=== PATIENT | male | born 1955 | race Caucasian/White ===

== ENCOUNTER → 2017-03-29 | Outpatient (CLI) | payer BC, OTHER ==
[~2017-03-29] MED LIST: ACTOS PLUS; ATOR40TA70 PO; CANA300T PO; CETI10TA17; FLUO40CA PO; HYDR-3454 PO; LISI40TA PO; PARO20TA57 PO; PIOG30TA PO; SAXA1TBM3 PO; [UNRECOGNIZED DRUG - OTHER]; lisinopril
--- NOTE | 2017-03-29 10:15 | Diagnostic Imaging Report ---
PROCEDURE: MRI right joint upper extremity without contrast. TECHNIQUE: Multiplanar, multisequence non contrast-enhanced MRI of the right wrist was accomplished. INDICATION: Dorsal wrist pain for two months. COMPARISON: None available. FINDINGS: Bones and cartilage: Dorsal to the trapezium and hamate articulation, there is a 4 x 2 mm hypointense focus surrounded by synovial fluid and/or synovitis. This could represent a small cortical-based ossific fragment from fracture in this region. There is no bone marrow edema within the carpal bones of the wrist or the distal radius. Multifocal chondral loss throughout the radiocarpal joint is greatest in the dorsal aspect of the radius with underlying subcortical cystic change secondary to full-thickness chondromalacia overlying. No osseous erosions. There is no osteonecrosis of the lunate. Tendons: The extensor tendons are normal in position and there is no peritendinitis or tear. Flexor tendons within the carpal tunnel are normal. The flexor carpi radialis and flexor carpi ulnaris are also normal. The palmaris longus is normal where visualized. Ligaments: Assessment of the intrinsic ligaments of the wrist is mildly limited without intra-articular contrast. Allowing for this, the TFC articular disc appears intact. Its radial and ulnar struts remain intact as well. The radioulnar component of the TFCC is normal. Lunotriquetral ligament is grossly normal. The dorsal and palmar components of the scapholunate ligament are intact. Soft tissues: There are no soft tissue ganglia about the wrist. The median nerve is normal in morphology. No abnormal mass effect in Guyon's canal. IMPRESSION: 1. Tiny hypointense fragment dorsal to the triquetrum and hamate with surrounding synovitis may relate to a small cortical-based ossific fragment. Correlation with lateral radiographs of the wrist is advised. 2. Hala-gb-ejqxhxwi degenerative changes of the radiocarpal joint include a focus of full-thickness chondral loss and underlying cystic change in the distal radius. 3. No ligamentous or tendinous abnormality. Dictated by: Dictated on workstation # [id number]
== END ==
LOC: RAD 08:30
PROVIDERS: ATTEND Orthopaedic Surgery
DX: M19.031 Primary osteoarthritis, right wrist (principal)
CPT/HCPCS: 73221

== ENCOUNTER → 2017-05-12 | Outpatient (CLI) | payer BC ==
--- NOTE | 2017-05-12 12:29 | Diagnostic Imaging Report ---
PROCEDURE: CT abdomen and pelvis without contrast. TECHNIQUE: Multiple contiguous axial images were obtained through the abdomen and pelvis without the use of intravenous contrast. INDICATION: Hematuria and dysuria COMPARISON: None FINDINGS: The lung bases are clear. The liver appears unremarkable. The gallbladder appears normal. There is no biliary dilatation. The pancreas, spleen and adrenal glands appear unremarkable. The kidneys and ureters appear unremarkable. The bladder is incompletely distended which likely accounts for the thickening of the bladder wall. This can be seen however with cystitis. Correlate clinically. There are small fat-containing inguinal hernias bilaterally. There is diverticulosis without evidence of diverticulitis. No evidence of appendicitis or other acute focal inflammatory process. There is no free fluid free air or adenopathy. Abdominal aorta appears normal in caliber. The osseous structures appear unremarkable with the exception of mild degenerative change. IMPRESSION: 1. No acute abnormalities demonstrated. 2. Diverticulosis without evidence diverticulitis. 3. Mild thickening of the bladder wall is probably due to incomplete distention but can be seen with cystitis. Correlate clinically 4. Small fat-containing inguinal hernias bilaterally. Dictated by: Dictated on workstation # [id number]
== END ==
LOC: RAD 09:56
PROVIDERS: ATTEND Urology
DX: R31.9 Hematuria, unspecified (principal); R30.0 Dysuria; K40.90 Unilateral inguinal hernia, without obstruction or gangrene, not specified as recurrent; N32.89 Other specified disorders of bladder; K57.90 Diverticulosis of intestine, part unspecified, without perforation or abscess without bleeding
CPT/HCPCS: 74176

== ENCOUNTER 2017-11-15 05:37 | Outpatient (CLI) | payer BC ==
[~2017-11-15] VITALS: Ht 175.3 cm; Wt 108.9 kg
[2017-11-15] MEDS ORDERED: METF-399 PO (12:57)
[2017-11-15] MEDS ORDERED: SPIR25TA5 PO (12:57)
[2017-11-15] MEDS ORDERED: GLIM1TAB PO (12:57)
[2017-11-15] MEDS ORDERED: PARO20TA5 PO (12:57)
[2017-11-15] MEDS ORDERED: DICY10CA12 PO (12:57)
[2017-11-15] MEDS ORDERED: LISI40TA PO (12:57)
[2017-11-15] MEDS ORDERED: ASPI-586 PO (12:57)
[2017-11-15] MEDS ORDERED: ATOR40TA70 PO (12:57)
[2017-11-15] MEDS ORDERED: PIOG30TA71 PO (12:57)
== END 2017-11-15 12:59 | disposition home or self-care (01) ==
LOC: PREOP 05:37
PROVIDERS: ATTEND Surgery
DX: Z01.818 Encounter for other preprocedural examination (principal)

== ENCOUNTER 2017-11-20 08:40 | Day surgery (SDC) | payer BC ==
[~2017-11-20] VITALS: Ht 175.3 cm; Wt 108.9 kg
[~2017-11-20 08:40] MED LIST changes: +ASPI-586 PO; +DICY10CA12 PO; +GLIM1TAB PO; +METF-399 PO; +PARO20TA5 PO; +PIOG30TA71 PO; +SPIR25TA5 PO
--- OUTSIDE RECORDS SUMMARY | 2017-11-20 08:50 | XMS REPORT ---
Author Author TEJAS BRAN [facility] Address [address] [place] [id number] Care Team Providers Care Med Aide Name Role Phone TEJAS BRAN Unavailable PROBLEMS Unknown Problems ALLERGIES No Information SOCIAL HISTORY Never Assessed PLAN OF CARE VITAL SIGNS MEDICATIONS No Known Medications RESULTS No Results PROCEDURES Procedure Date Ordered Result Body Site ZOSTER (ZOSTAVAX) July 06, 2016 SINGLE IMMUNIZATION ADMIN July 06, 2016 IMMUNIZATIONS Vaccine Route Administration Date Status ZOSTER (ZOSTAVAX) SC Subcutaneous July 06, 2016 Administered MEDICAL (GENERAL) HISTORY Type Description Date Medical History diabetes Medical History seasonal allergies Medical History HTN
--- OUTSIDE RECORDS SUMMARY | 2017-11-20 08:51 | XMS REPORT | Continuity of Care Document ---
Author Author [facility] Organization [facility] Address Unknown Phone Unavailable Allergies Active Description Code Type Severity Reaction Onset Reported/Identified Relationship to Patient Clinical Status Yes TETANUS TOXOID TETANUS TOXOID Moderate nausea vomiting 11/02/2009 Yes No Known Drug Allergies [id number] Drug Allergy Unknown N/A 11/15/2017 Medications There is no data. Problems Date Dx Coded Attending Type Code Diagnosis Diagnosed By 05/19/2013 KODY BENDER DO S Ot 250.02 DIAB VINCENZO WO COMPL, TYPE II OR UNSPEC TY 05/19/2013 MYRA BENDER DOQUELINE S Ot 278.00 OBESITY, NOS 05/19/2013 GETACHEW BENDER DOLINE S Ot 401.9 HYPERTENSION NOS 05/30/2014 JAMIE WALTON, CONCHITA Dixon Ot 706.2 SEBACEOUS CYST 06/02/2015 LUIS SANFORD, KODY S Ot R51 HEADACHE 06/02/2015 MONAENDMYRA VALDEZ DOQUELINE S Ot R51 HEADACHE 07/06/2015 ORENDER , KODY S Ot R51 HEADACHE 09/02/2015 LORI LYNCH APRN Ot G47.33 OBSTRUCTIVE SLEEP APNEA (ADULT) (PEDIATR 09/02/2015 ORENDER MYRA SANFORDKODY S Ot R51 HEADACHE 09/16/2015 LORI LYNCH APRN Ot G47.33 OBSTRUCTIVE SLEEP APNEA (ADULT) (PEDIATR 09/18/2015 TWIN CABEZAS ZONING TECHNICIAN Ot G47.33 OBSTRUCTIVE SLEEP APNEA (ADULT) (PEDIATR 03/27/2017 Ot 611.71 MASTODYNIA 03/27/2017 MYRA BENDER DOQUELINE S Ot 368.2 DIPLOPIA 03/27/2017 Ot 250.02 DIAB VINCENZO WO COMPL, TYPE II OR UNSPEC TY 03/27/2017 Ot 278.00 OBESITY, NOS 03/27/2017 Ot 401.9 HYPERTENSION NOS 03/27/2017 JAMIE WALTON, CONCHITA Dixon Ot 706.2 SEBACEOUS CYST 03/27/2017 CONCHITA AYALA MD Ot V72.84 EXAM PRE-OPERATIVE NOS 03/27/2017 LUIS SANFORD, KODY S Ot R51 HEADACHE 03/30/2017 TIM CLAROS MD Ot M19.031 PRIMARY OSTEOARTHRITIS, RIGHT WRIST 04/04/2017 TIM CLAROS MD Ot M19.031 PRIMARY OSTEOARTHRITIS, RIGHT WRIST 05/10/2017 TIM CLAROS MD Ot M19.031 PRIMARY OSTEOARTHRITIS, RIGHT WRIST 05/12/2017 Ot 611.71 MASTODYNIA 05/12/2017 KODY BENDER DO S Ot 368.2 DIPLOPIA 05/12/2017 Ot 250.02 DIAB VINCENZO WO COMPL, TYPE II OR UNSPEC TY 05/12/2017 Ot 278.00 OBESITY, NOS 05/12/2017 Ot 401.9 HYPERTENSION NOS 05/12/2017 CONCHITA AYALA MD Ot 706.2 SEBACEOUS CYST 05/12/2017 CONCHITA AYALA MD Ot V72.84 EXAM PRE-OPERATIVE NOS 05/12/2017 HYACINTH WALTON, TIM Carlisle Ot M19.031 PRIMARY OSTEOARTHRITIS, RIGHT WRIST 05/15/2017 PAM WALTON, EDA Dolan Ot K40.90 UNIL INGUINAL HERNIA, W/O OBST OR GANGR, 05/15/2017 EDA OROZCO MD Ot K57.90 DVRTCLOS OF INTEST, PART UNSP, W/O PERF 05/15/2017 EDA OROZCO MD Ot N32.89 OTHER SPECIFIED DISORDERS OF BLADDER 05/15/2017 EDA OROZCO MD Ot R30.0 DYSURIA 05/15/2017 EDA OROZCO MD Ot R31.9 HEMATURIA, UNSPECIFIED 11/15/2017 Ot 250.02 DIAB VINCENZO WO COMPL, TYPE II OR UNSPEC TY 11/15/2017 Ot 278.00 OBESITY, NOS 11/15/2017 Ot 401.9 HYPERTENSION NOS 11/15/2017 CONCHITA AYALA MD Ot Z01.818 ENCOUNTER FOR OTHER PREPROCEDURAL EXAMIN Procedures There is no data. Results There is no data. Encounters ACCT No. Visit Date/Time Discharge Status Pt. Type Provider Facility Loc./Unit Complaint [id number] 11/15/2017 05:37:00 11/15/2017 12:59:00 DIS Outpatient CONCHITA AYALA MD [facility] PREOP COLONOSCOPY [id number] 05/12/2017 09:56:00 05/12/2017 23:59:59 CLS Outpatient PAM WALTON, EDA Dolan [facility] RAD HEMATURIA [id number] 03/29/2017 08:30:00 03/29/2017 23:59:59 CLS Outpatient TIM CLAROS MD [facility] RAD RT WRIST PAIN [id number] 09/17/2015 21:42:00 09/18/2015 06:35:00 DIS Outpatient TWIN CABEZAS ZONING TECHNICIAN [facility] SLEEP VIET,SNORING,DM HIGH CHOLESTEROL [id number] 09/02/2015 13:00:00 09/02/2015 13:20:00 DIS Outpatient LORI LYNCH APRN [facility] SLEEP VIET,SNORING [id number] 06/01/2015 08:25:00 06/01/2015 23:59:59 CLS Outpatient KODY BENDER DO [facility] RAD SINUS PAIN PRESSURE [id number] 05/30/2014 08:21:00 05/30/2014 11:15:00 DIS Outpatient CONCHITA AYALA MD [facility] SDC INFECTED SEBACEOUS CYST [id number] 05/26/2014 10:06:00 05/26/2014 23:59:59 CLS Outpatient CONCHITA AYALA MD [facility] PREOP INFECTED SEBACEOUS CYST [id number] 03/04/2013 18:00:00 05/19/2013 00:01:00 DIS Outpatient KODY BENDER DO [facility] DSME DM2 [id number] 03/15/2013 13:38:00 03/15/2013 23:59:59 CLS Outpatient KODY BENDER DO [facility] RAD BLURRED VISION [id number] 11/20/2017 09:30:00 PEN Preadmit CONCHITA AYALA MD [facility] ENDO FAMILY HX POLYPS/HX DIVERT/IRREG BM [id number] 05/20/2013 10:00:00 Document Registration [id number] 05/01/2012 10:47:00 Document Registration 02/201711/13/2017 17:49:07 11/13/2017 23:59:59 [facility] Outpatient Kody Bender
[2017-11-20] MEDS ORDERED: NS IV 500 ML 500 ML IV PRN (08:52)
[2017-11-20 08:58] VITALS: BP 147/81
[2017-11-20] MEDS ORDERED: fentaNYL INJECTION 100 MCG/2 ML AMP IVP ONE (09:00)
[2017-11-20] MEDS ORDERED: MIDAZOLAM 2 MG/2 ML (VERSED) VIAL IVP ONE (09:00)
--- NOTE | 2017-11-20 09:37 | History & Physicial ---
History of Present Illness History of Present Illness Reason for visit/HPI to undergo screening colonoscopy. He reports a family history of polyps. In addition, diverticulosis was discovered during last colonoscopy. Date of Admission 11/20/17 Date Seen by a Provider: Nov 20, 2017 Time Seen by a Provider: 09:36 I consulted on this patient on 11/20/17 09:35 Attending Physician Conchita Gomez MD Admitting Physician Migdalia Bender DO Consult Allergies and Home Medications Allergies Coded Allergies: No Known Drug Allergies (Unverified , 11/15/17) Home Medications Aspirin 81 Mg Tablet.dr, 81 MG PO DAILY, (Reported) Atorvastatin Calcium 40 Mg Tablet, 40 MG PO DAILY, (Reported) Dicyclomine HCl 10 Mg Capsule, 10 MG PO QID, (Reported) Glimepiride 1 Mg Tablet, 1 MG PO DAILY, (Reported) Lisinopril 40 Mg Tablet, 40 MG PO DAILY, (Reported) Metformin HCl 1,000 Mg Tablet, 1,000 MG PO DAILY, (Reported) Paroxetine HCl 20 Mg Tablet, 20 MG PO DAILY, (Reported) Pioglitazone HCl 30 Mg Tablet, 30 MG PO DAILY, (Reported) Spironolactone 25 Mg Tablet, 25 MG PO DAILY, (Reported) Patient Home Medication List Home Medication List Reviewed: Yes Past Kuivwmv-Zdfcsd-Oywbdx Hx Patient Social History Marrital Status: Employed/Student: employed Alcohol Use: Rarely Uses Number of Drinks Today: 0 Alcohol Beverage of Choice: Other Recreational Drug Use: No Smoking Status: Never a Smoker Recent Foreign Travel: No Contact w/other who traveled: No Recent Hopitalizations: No Recent Infectious Disease Expo: No Immunizations Up To Date Date of Influenza Vaccine: Nov 13, 2016 Seasonal Allergies Seasonal Allergies: Yes (mild) Surgeries Yes Tonsillectomy Respiratory Currently Using CPAP: No Cardiovascular Yes Hypertension Reproductive System Hx Reproductive Disorders: No Sexually Transmitted Disease: No HIV/AIDS: No Gastrointestinal Yes Diverticulosis, Irritable Bowel Musculoskeletal No Endocrine History of Endocrine Disorders: Yes Endocrine Disorders: Diabetes, Non-Insulin dep HEENT Loss of Vision: Denies Hearing Impairment: Denies Blood Transfusions Adverse Reaction to a Blood Tr: No Review of Systems Constitutional: no symptoms reported EENTM: no symptoms reported Respiratory: no symptoms reported Cardiovascular: no symptoms reported Gastrointestinal: see HPI Genitourinary: no symptoms reported Musculoskeletal: no symptoms reported Skin: no symptoms reported Psychiatric/Neurological: No Symptoms Reported Physical Exam Vital Signs Vital Signs - First Documented 11/20/17 08:58 Temp 97.8 Pulse 75 Resp 18 B/P (MAP) 147/81 (103) Pulse Ox 96 O2 Delivery Room Air Capillary Refill : Height, Weight, BMI Height: 5'9.00" Weight: 240lbs. 0.0oz. 108.494534tb; 35.4 BMI Method:Stated General Appearance: No Apparent Distress Neck: Normal Inspection Respiratory: Lungs Clear Cardiovascular: Regular Rate, Rhythm Gastrointestinal: Non Tender, Soft Extremity: Normal Inspection Neurologic/Psychiatric: Alert, Oriented x3 Skin: Warm/Dry Assessment/Plan Assessment and Plan gentleman with the family history of polyps. For screening colonoscopy. Admission Diagnosis Admission Status: Other (Outpt Proc) CONCHITA GOMEZ MD Nov 20, 2017 09:37
--- NOTE | 2017-11-20 09:38 | Conscious Sedation/ASA ---
Conscious Sedation Pre-Proced Time 09:37 ASA Score 2 For ASA 3 and 4: Consider anesthesia and medical clearance. Also, for patients with a history of failed moderate sedation consider anesthesia. Airway Lungs Heart ASA score ASA 1: a normal healthy patient ASA 2: a patient with a mild systemic disease (mid diabetes, controlled hypertension, obesity ASA 3: a patient with a severe systemic disease that limits activity (angina , COPD, prior Myocardial infarction) ASA 4: a patient with an incapacitating disease that is a constant threat to life (CHF, renal failure) ASA 5: a moribund patient not expected to survive 24 hrs. (ruptured aneurysm) ASA 6: a declared brain patient whose organs are being harvested. For emergent operations, add the letter E after the classification Mallampati Classification Grade 1 Sedation Plan Discussed options with patient/fam The patient is an appropriate candidate to undergo the planned procedure, sedation, and anesthesia. The patient immediately re-assessed prior to indication. CONCHITA AYALA MD Nov 20, 2017 09:38
[2017-11-20] MEDS ORDERED: fentaNYL INJECTION 100 MCG/2 ML AMP ONE ×2 (10:27)
[2017-11-20] MEDS ORDERED: MIDAZOLAM 2 MG/2 ML (VERSED) VIAL ONE ×4 (10:27→10:28)
--- NOTE | 2017-11-20 10:56 | Endo Procedure Record ---
Endo Procedure Report Date of Procedure Last Colonoscopy: Yes (2010) Nov 20, 2017 Surgeon (s) CONCHITA AYALA MD Post Procedure/Op Diagnosis sigmoid diverticulosis Procedure Performed colonoscopy to cecum Description of Procedure Anesthesia Type: Conscious Sedation Specimen(s) collected/removed None Description of the Procedure Indication for the procedure: This gentleman came in for colonoscopy in view of family history of polyps and to investigate a change in his bowel habits. Informed consent was obtained after reviewing the procedure in detail. Description of procedure: He was placed in left lateral rectus position and his vital signs were monitored. Conscious sedation was achieved using Versed and fentanyl. Digital rectal examination was unremarkable. The colonoscope was then introduced into the rectum and advanced all the way up to the cecum The quality of bowel preparation was rather suboptimal. I was able to suction the liquid fecal material and completed the examination. The scope was then withdrawn slowly and the mucosa examined in a systematic fashion. Findings: Sigmoid diverticulosis without any inflammation. He tolerated the procedure well and was taken back to the nursing area in a stable condition. Impression: Family history of polyps. Incidental sigmoid diverticulosis, possibly contributing to diarrhea. From a colon cancer screening viewpoint, recommend repeating the examined 5 years. Copy Copies To 1: KODY SMITH XAVIER M MD Nov 20, 2017 10:56
--- NOTE | 2017-11-20 10:57 | Discharge Inst-Simple/Standard ---
Discharge Inst-Standard Discharge Medications New, Converted or Re-Newed RX: Other Patient Instructions/Follow Up Plan of Care/Instructions/FU: repeat colonoscopy in 5 years Activity as Tolerated: Yes Discharge Diet: No Restrictions CONCHITA AYALA MD Nov 20, 2017 10:57
[2017-11-20 11:20] VITALS: BP 106/59
[2017-11-20 11:50] VITALS: BP 132/87
[2017-11-20 12:15] VITALS: BP 132/87
== END 2017-11-20 12:15 | disposition home or self-care (01) ==
LOC: ENDO 08:40
PROVIDERS: ATTEND Surgery
DX: Z12.11 Encounter for screening for malignant neoplasm of colon (principal); K57.30 Diverticulosis of large intestine without perforation or abscess without bleeding; Z83.71 Family history of colonic polyps; I10 Essential (primary) hypertension; E11.9 Type 2 diabetes mellitus without complications
CPT/HCPCS: 82962

== ENCOUNTER → 2018-02-27 | Outpatient (CLI) | payer BC | LOC: CARD 09:54 | PROVIDERS: ATTEND Nurse Practitioner Family | DX: R07.9 Chest pain, unspecified (principal) | CPT/HCPCS: 93005 ==

== ENCOUNTER → 2018-03-01 | Outpatient (CLI) | payer BC ==
[~2018-03-01] MED LIST changes: +IOHEXOL 350 MG/ML 100 ML (OMNIPAQUE 350) VIAL IV ONE; +NS 100 ML (IVPB) BAG IV ONE; +RECEIVED CONTRAST (Hold Metformin) IV SCH
--- NOTE | 2018-03-01 09:31 | Diagnostic Imaging Report ---
PROCEDURE: CT abdomen and pelvis with contrast. TECHNIQUE: Multiple contiguous axial images were obtained through the abdomen and pelvis after administration of intravenous contrast. INDICATION: Elevated lipase. Comparison is made to the examination of 05/12/2017. There is low-density throughout the liver without evidence of focal hepatic, gallbladder, pancreatic or splenic lesion. There is no evidence of peripancreatic inflammation to indicate pancreatitis. No adrenal gland or renal lesion is seen. There is no free fluid within the abdomen or pelvis. There are numerous diverticula involving the colon most pronounced in the left colon without evidence of significant pericolonic inflammation. The bladder is decompressed which limits evaluation. There does appear to be prominence of the median lobe of prostate gland. There is inguinal herniation of fat, bilaterally. No bowel hernia is identified. IMPRESSION: No acute abnormalities identified. There does appear to be hepatic steatosis without CT evidence of pancreatitis. Inguinal herniation of fat is again noted without change from previous study. Dictated by: Dictated on workstation # [id number]
== END ==
LOC: RAD 08:04
PROVIDERS: ATTEND Family Medicine
DX: K40.90 Unilateral inguinal hernia, without obstruction or gangrene, not specified as recurrent (principal)
CPT/HCPCS: 74177

== ENCOUNTER → 2018-03-21 | Outpatient (CLI) | payer BC ==
[~2018-03-21] MED LIST changes: -IOHEXOL 350 MG/ML 100 ML (OMNIPAQUE 350) VIAL IV ONE; -NS 100 ML (IVPB) BAG IV ONE; -RECEIVED CONTRAST (Hold Metformin) IV SCH
[2018-03-21 15:01] VITALS: BP 147/91
--- NOTE | 2018-03-21 15:01 | Cardiology Stress Test Report ---
Stress Test Report Date of Procedure/Referring: Date of Procedure: Mar 21, 2018 PCP Migdalia Bender DO Admitting Physician Migdalia Bender DO Indications: Chest pain Baseline Heart Rate: 75 Baseline Blood Pressure: Blood Pressure Systolic: 147 Blood Pressure Diastolic: 91 Baseline EKG: Baseline EKG: sinus rhythm with right bundle branch block Summary/Conclusion: Summary: In summary, the patient started exercising with a baseline heart rate, blood pressure and EKG mentioned above Patient was able to exercise for a total of 4:45 minutes on Herman protocol, 6.6 METs Maximum heart rate 155 Maximum blood pressure 210/78 Stress EKG Persistent right bundle branch block with nondiagnostic changes and occasional PVCs Recovery EKG Return to baseline Conclusion: 1. Fair exercise tolerance for a total of 4:45 minutes on Herman protocol, 6.6 METs, achieving 97 percent of maximum expected heart rate 2. Baseline right bundle branch block persisted through followed test with nondiagnostic EKG changes and occasional PVCs noted during exercise 3. Baseline hypertension with severe hypertensive response to exercise 4. Overall it is nondiagnostic test, recommend evaluating stress echo or stress nuclear test MARY DAMON MD Mar 21, 2018 15:01
== END ==
LOC: CARD 12:58
PROVIDERS: ATTEND Family Medicine
DX: R07.9 Chest pain, unspecified (principal)
CPT/HCPCS: 93017

== ENCOUNTER → 2018-08-15 | Outpatient (CLI) | payer BC ==
--- NOTE | 2018-08-15 09:41 | Diagnostic Imaging Report ---
Indication: Mastalgia. No prior examinations are available for comparison. Findings: There is right gynecomastia. There is no dominant mass, spiculated lesion or suspicious calcification. There is no significant gynecomastia on the left. Impression: Category 2 benign Right gynecomastia, otherwise unremarkable. Dictated by: Dictated on workstation # [id number]
== END ==
LOC: RAD 08:36
PROVIDERS: ATTEND Family Medicine
DX: N64.4 Mastodynia (principal)

== ENCOUNTER → 2019-03-11 | Outpatient (CLI) | payer BC ==
[~2019-03-11] MED LIST changes: -GLIM1TAB PO; +GLIM1TAB2 PO
--- NOTE | 2019-03-11 11:23 | Diagnostic Imaging Report ---
PROCEDURE: US Gallbladder. TECHNIQUE: Multiple real-time grayscale images were obtained over the right upper quadrant in various projections. INDICATION: Elevated bilirubin and abdominal pain. FINDINGS: Liver is upper limits of normal in size at 18 cm. There is diffuse increased echogenicity throughout the liver consistent with hepatic steatosis. No discrete liver mass is detected. The portal vein is patent and shows normal direction of flow. Gallbladder is without stones or sludge. No wall thickening or biliary ductal dilatation is seen. Pancreas and aorta are obscured by bowel gas. IVC appears patent. Right kidney is without evidence of calculi or hydronephrosis. There is no ascites. IMPRESSION: 1. Hepatic steatosis. 2. No evidence of cholelithiasis or acute cholecystitis. Dictated by: Dictated on workstation # [id number]
== END ==
LOC: RAD 09:24
PROVIDERS: ATTEND Family Medicine
DX: K76.0 Fatty (change of) liver, not elsewhere classified (principal)
CPT/HCPCS: 76705

== ENCOUNTER → 2019-12-20 | Outpatient (CLI) | payer BC ==
[~2019-12-20] MED LIST changes: -GLIM1TAB2 PO; +GLIM1TAB4 PO
--- NOTE | 2019-12-20 11:31 | Diagnostic Imaging Report ---
PROCEDURE: CT abdomen and pelvis without contrast. TECHNIQUE: Multiple contiguous axial images were obtained through the abdomen and pelvis without the use of intravenous contrast. Auto Exposure Controls were utilized during the CT exam to meet ALARA standards for radiation dose reduction. INDICATION: New diagnosis prostate cancer. Study compared with abdominal pelvic CT 03/01/2018 FINDINGS: There are no suspicious-appearing sclerotic bony lesions. There are chronic degenerative changes to the hips, pelvis and spine. No basilar pulmonary nodule or mass. The unopacified liver appeared nonfocal. The gallbladder and bile ducts negative. Pancreas within normal limits. The spleen and adrenals negative. There are no radiopaque urinary tract stones. There is no hydroureteronephrosis. No perinephric or periureteric edema. At the study the prostate itself appeared nonfocal. The seminal vesicles symmetric and normal in morphology and density. No perivesical or periprosthetic lymphadenopathy. The pelvic sidewalls and ileo-inguinal lymph node chains appeared normal. There is a fatty bilateral inguinal hernias without evidence for further incarceration or strangulation. No acute appearing abdominal wall pathology. No ascites. No bowel, biliary or urinary tract obstruction. This patient has zmtl-ch-ekpqpxyr noninflamed sigmoid diverticulosis. IMPRESSION: No findings of metastatic disease or acute appearing abnormalities. Dictated by: Dictated on workstation # [id number]
--- NOTE | 2019-12-20 13:37 | Diagnostic Imaging Report ---
INDICATION: Prostate carcinoma. Patient was administered 26.4 mCi technetium 99m MDP intravenously and whole-body imaging was performed after 3 hour delay. No prior bone scans are available for comparison. There is normal uptake of activity by the axial and appendicular skeleton. There is uptake by both kidneys with excretion into the urinary bladder. No suspicious foci of tracer accumulation is identified to suggest osseous metastatic disease. There are some degenerative changes in the feet bilaterally. IMPRESSION: No scintigraphic evidence of osseous metastatic disease. Dictated by: Dictated on workstation # [id number]
== END ==
LOC: CARD 12:00
PROVIDERS: ATTEND Urology
DX: C61 Malignant neoplasm of prostate (principal)
CPT/HCPCS: 74176; 78306; A9503

== ENCOUNTER 2020-02-21 05:30 | Outpatient (RCR) | payer BC ==
[~2020-02-21] VITALS: Ht 175.3 cm; Wt 109.1 kg
[~2020-02-21 05:30] MED LIST changes: +BUSP10TA95 PO; +SERT100T8 PO
[2020-02-24] MEDS ORDERED: SPIR25TA5 PO (10:42)
[2020-02-24] MEDS ORDERED: ASPI325T32 PO (10:42)
[2020-02-24] MEDS ORDERED: VITA100C22 PO (10:42)
[2020-02-24] MEDS ORDERED: CETI10TA17 PO (10:42)
[2020-02-24] MEDS ORDERED: OMEG-35 PO (10:42)
[2020-02-24] MEDS ORDERED: IBUP-1780 PO (10:42)
[2020-02-24] MEDS ORDERED: SERT50TA9 PO (10:42)
[2020-02-25] MEDS ORDERED: CEFD300C3 PO (09:04)
[2020-02-25] MEDS ORDERED: ACET325T49 PO (09:04)
[2020-02-25] MEDS ORDERED: SITA100T12 PO (09:07)
== END 2020-02-21 11:06 | disposition home or self-care (01) ==
LOC: PREOP 05:30
PROVIDERS: ATTEND Urology
DX: Z01.812 Encounter for preprocedural laboratory examination (principal); C61 Malignant neoplasm of prostate; Z20.822 Contact with and (suspected) exposure to COVID-19
CPT/HCPCS: 87635

== ENCOUNTER 2020-03-06 05:33 | Outpatient (RCR) | payer BC ==
[~2020-03-06 05:33] MED LIST changes: +ACET325T49 PO; +ASPI325T32 PO; +CEFD300C3 PO; +CETI10TA17 PO; +IBUP-1780 PO; +OMEG-35 PO; +SERT50TA9 PO; +SITA100T12 PO; +VITA100C22 PO
== END 2020-03-06 10:12 | disposition home or self-care (01) ==
LOC: PREOP 05:33
PROVIDERS: ATTEND Urology
DX: Z01.812 Encounter for preprocedural laboratory examination (principal); Z20.822 Contact with and (suspected) exposure to COVID-19
CPT/HCPCS: 87635

== ENCOUNTER 2020-03-10 06:24 | Day surgery (SDC) | payer BC ==
[2020-03-10] VITALS (10 sets, daily range): BP systolic 149–168; BP diastolic 84–98
[~2020-03-10] VITALS: Ht 175.3 cm; Wt 109.1 kg
[2020-03-10] MEDS ORDERED: cefTRIAXone FOR IV USE 1,000 MG in WATER (STERILE) FOR INJECTION 10 ML IV ONE (06:45)
[2020-03-10] MEDS ORDERED: LACTATED RINGERS 1,000 ML IV PRN (06:45)
--- NOTE | 2020-03-10 07:06 | Progress Note-Pre Operative ---
Pre-Operative Progress Note H&P Reviewed The H&P was reviewed, patient examined and no changes noted. Date Seen by Provider: Mar 10, 2020 Time Seen by Provider: 07:05 Date H&P Reviewed: Mar 10, 2020 Time H&P Reviewed: 07:05 Pre-Operative Diagnosis: CA PROSTATE EDA OROZCO MD Mar 10, 2020 07:06
[2020-03-10] MEDS ORDERED: SEVOFLURANE (ULTANE) 15 ML INHAL SOLN ONE (07:07)
[2020-03-10] MEDS ORDERED: fentaNYL INJECTION 100 MCG/2 ML AMP ONE (07:07)
[2020-03-10] MEDS ORDERED: LIDOCAINE PF 2% 5 ML (XYLOCAINE) VIAL ONE (07:07)
[2020-03-10] MEDS ORDERED: ONDANSETRON 4 MG/2 ML (SDV) Z0FRAN ONE (07:07)
[2020-03-10] MEDS ORDERED: MIDAZOLAM 2 MG/2 ML (VERSED) VIAL ONE (07:07)
[2020-03-10] MEDS ORDERED: proPOfol 200 MG/20 ML (DIPRIVAN) VIAL IV ONE (07:07)
--- NOTE | 2020-03-10 07:30 | Progress Note-Post Operative ---
Post-Operative Progess Note Surgeon (s)/Package Delivery Driver (s) Surgeon EDA OROZCO MD Package Delivery Driver: NONE Pre-Operative Diagnosis CA PROSTATE Post-Operative Diagnosis SAME Procedure & Operative Findings Date of Procedure 03/10/20 Procedure Performed/Findings SPACE OAR PLACEMENT Anesthesia Type GENERAL Estimated Blood Loss Estimated blood loss (mL): NEGLIGIBLE Specimens/Packing Specimens Removed NONE Packing: NONE EDA OROZCO MD Mar 10, 2020 07:30
--- NOTE | 2020-03-10 07:31 | Discharge Inst-Urology ---
Discharge Inst-Urology Reconcile Patient Problems Problems Reviewed?: Yes Final Diagnosis CA PROSTATE Patient Instructions/Follow Up Plan/Assessment/Instructions Please make appointment to been seen in office in 2 weeks. In 48 hours, may resume ASA if no bleeding Increase oral fluids for 48 hours and then as needed. Diet and Activity as tolerated. If questions or concerns contact your physician Or seek help at emergency department. EDA OROZCO MD Mar 10, 2020 07:31
[2020-03-10] MEDS ORDERED: ONDANSETRON 4 MG/2 ML (SDV) Z0FRAN IVP PRN (08:30)
[2020-03-10] MEDS ORDERED: morphine INJ 10 MG/ML 1ML (SYR OR VIAL) IVP ONE (08:30)
[2020-03-10] MEDS ORDERED: PHEN-640 PO (09:15)
[2020-03-10] MEDS ORDERED: CIPR-225 PO (09:15)
[2020-03-10] MEDS ORDERED: PHENAZOPYRIDINE 100 MG (PYRIDIUM) TABLET ONE (09:22)
[2020-03-10] MEDS ORDERED: PHENAZOPYRIDINE 100 MG (PYRIDIUM) TABLET PO ONE (09:30)
--- NOTE | 2020-03-10 12:38 | Anesthesia-General Post-Op ---
General Patient Condition Mental Status/LOC: Same as Preop Cardiovascular: Satisfactory Nausea/Vomiting: Absent Respiratory: Satisfactory Pain: Controlled Complications: Absent Post Op Complications Complications None Follow Up Care/Instructions Patient Instructions None needed. Anesthesia/Patient Condition Patient Condition Patient was seen after the procedure and he was doing well, no complaints, stable vital signs, no apparent adverse anesthesia problems. BROOKE WHITE DO Mar 10, 2020 12:38
== END 2020-03-10 10:10 | disposition home or self-care (01) ==
LOC: SDC 06:24
PROVIDERS: ATTEND Urology
DX: C61 Malignant neoplasm of prostate (principal); I10 Essential (primary) hypertension; G47.33 Obstructive sleep apnea (adult) (pediatric); F32.9 Major depressive disorder, single episode, unspecified; E11.9 Type 2 diabetes mellitus without complications; F41.9 Anxiety disorder, unspecified; M19.90 Unspecified osteoarthritis, unspecified site; E66.9 Obesity, unspecified; Z68.35 Body mass index [BMI] 35.0-35.9, adult; Z79.899 Other long term (current) drug therapy
CPT/HCPCS: 82962; 87081

== ENCOUNTER → 2020-04-16 | Outpatient (RCR) | payer BC ==
[~2020-04-16] MED LIST changes: +CIPR-225 PO; +LISI40TA9 PO; +PHEN-640 PO; +SERT-413 PO; +SERT-414 PO; -SERT100T8 PO; -SERT50TA9 PO
== END | disposition home or self-care (01) ==
LOC: ONC 01-17 08:36
PROVIDERS: ATTEND Radiology Radiation Oncology
DX: C61 Malignant neoplasm of prostate (principal); E11.9 Type 2 diabetes mellitus without complications; I10 Essential (primary) hypertension; Z80.1 Family history of malignant neoplasm of trachea, bronchus and lung
CPT/HCPCS: 77334; 77336; 77385; 99204

== ENCOUNTER 2020-06-24 13:46 | Outpatient (RCR) | payer BC | END 2020-07-16 | disposition home or self-care (01) | LOC: ONC 13:46 | PROVIDERS: ATTEND Radiology Radiation Oncology | DX: C61 Malignant neoplasm of prostate (principal); E11.9 Type 2 diabetes mellitus without complications; I10 Essential (primary) hypertension; E78.00 Pure hypercholesterolemia, unspecified | CPT/HCPCS: 77336; 77385; 84153; 99213 ==

== ENCOUNTER 2021-03-11 09:35 | Outpatient (CLI) | payer BC ==
[~2021-03-11] VITALS: Ht 175.3 cm; Wt 124.0 kg
[2021-03-11] MEDS ORDERED: ACETAMINOPHEN 500 MG TAB (TYLENOL) PO PRN (09:45)
[2021-03-11] MEDS ORDERED: SOTROVIMAB 500 MG/NS 50 ML IVPB IV ONE ×2 (09:45)
[2021-03-11] MEDS ORDERED: EPINEPHrine INJECTION 1 MG/ML AMP IM PRN (09:45)
[2021-03-11] MEDS ORDERED: ONDANSETRON 4 MG/2 ML (SDV) Z0FRAN IV PRN (09:45)
[2021-03-11] MEDS ORDERED: diphenhydrAMINE 50 MG/ML INJ (BENADRYL) IV PRN (09:45)
[2021-03-11 09:46] VITALS: BP 160/78
[2021-03-11 10:22] VITALS: BP 139/80
== END 2021-03-11 11:00 ==
LOC: INFUSION 09:35
PROVIDERS: ATTEND Family Medicine
DX: U07.1 COVID-19 (principal); E11.9 Type 2 diabetes mellitus without complications

== ENCOUNTER 2021-12-28 20:24 | Outpatient (CLI) | payer BC | END 2021-12-29 06:43 | disposition home or self-care (01) | LOC: SLEEP 20:24 | PROVIDERS: ATTEND Otolaryngology Otolaryngology/Facial Plastic Surgery | DX: G47.33 Obstructive sleep apnea (adult) (pediatric) (principal) | CPT/HCPCS: 95811 ==

== ENCOUNTER 2022-06-02 08:49 | Outpatient (RCR) | payer MEDICARE, OTHER | END 2022-06-12 | disposition home or self-care (01) | LOC: ONC 08:49 | PROVIDERS: ATTEND Radiology Radiation Oncology | DX: C61 Malignant neoplasm of prostate (principal); E11.9 Type 2 diabetes mellitus without complications; E78.00 Pure hypercholesterolemia, unspecified; I10 Essential (primary) hypertension | CPT/HCPCS: 84153; G0463; 36415; 99213 ==

== ENCOUNTER 2022-07-14 20:36 | Outpatient (CLI) | payer MEDICARE, OTHER | END 2022-07-15 06:34 | disposition home or self-care (01) | LOC: SLEEP 20:36 | PROVIDERS: ATTEND Nurse Practitioner | DX: G47.33 Obstructive sleep apnea (adult) (pediatric) (principal); G47.31 Primary central sleep apnea; G47.10 Hypersomnia, unspecified | CPT/HCPCS: 95811 ==

== ENCOUNTER 2022-07-31 17:59 | Emergency (ER) | payer MEDICARE, OTHER ==
[~2022-07-31] VITALS: Ht 175.2 cm; Wt 106.0 kg
[2022-07-31] MEDS ORDERED: INSU100I10 SC (18:40)
[2022-07-31] MEDS ORDERED: INSU500I SC (18:40)
[2022-07-31] MEDS ORDERED: AMLO-250 PO (18:40)
[2022-07-31] MEDS ORDERED: NS IV 1000 ML 1,000 ML IV SCH ×2 (18:45→19:45)
[2022-07-31 18:55] LABS: ALBUMIN 4.3 GM/DL (3.2-4.5); BASOPHILS % (AUTO) 0 % (0-10); EOSINOPHILS % (AUTO) 0 % (0-10); HEMATOCRIT 43 % (40-54); HEMOGLOBIN 15.4 g/dL (13.3-17.7); LYMPHOCYTES # (AUTO) 1.1 10^3/uL (1.0-4.0); LYMPHOCYTES % (AUTO) 14 % (12-44); MEAN CORPUSCULAR HEMOGLOBIN 33 pg (25-34); MEAN CORPUSCULAR HGB CONC 36 g/dL (32-36); MEAN CORPUSCULAR VOLUME 90 fL (80-99); MEAN PLATELET VOLUME 11.1 fL (9.0-12.2); MONOCYTES # (AUTO) 0.4 10^3/uL (0.0-1.0); MONOCYTES % (AUTO) 5 % (0-12); NEUTROPHILS # (AUTO) 6.5 10^3/uL (1.8-7.8); NEUTROPHILS % (AUTO) 80 % (42-75); PLATELET COUNT 256 10^3/uL (130-400); WHITE BLOOD COUNT 8.2 10^3/uL (4.3-11.0)
[2022-07-31 18:56] LABS: POTASSIUM 4.3 MMOL/L (3.6-5.0)
[2022-07-31 18:57] LABS: CALCIUM 9.7 MG/DL (8.5-10.1)
[2022-07-31 18:58] LABS: TOTAL PROTEIN 7.3 GM/DL (6.4-8.2)
[2022-07-31 18:59] LABS: BILIRUBIN,URINE NEGATIVE (NEGATIVE); CLARITY,URINE CLEAR; COLOR,URINE YELLOW; GLUCOSE, URINE (UA) 3+ (NEGATIVE); KETONES,URINE NEGATIVE (NEGATIVE); LEUKOCYTE ESTERASE ,URINE NEGATIVE (NEGATIVE); NITRITE,URINE NEGATIVE (NEGATIVE); PROTEIN,URINE TRACE (NEGATIVE)
[2022-07-31 19:00] LABS: BILIRUBIN,TOTAL 1.5 MG/DL (0.1-1.0)
[2022-07-31 19:02] LABS: CREATININE SERUM 1.35 MG/DL (0.60-1.30)
--- NOTE | 2022-07-31 19:02 | ED General ---
General Chief Complaint: Glucose Problems Stated Complaint: HIGH BLOOD SUGAR Nursing Triage Note: PT STATES FEELING WEAK FOR ABOUT 3 WEEKS, PT TOOK BLOOD SUGAR TODAY 468. PT NONCOMPLIANT WITH CHECKING BLOOD SUGAR AND TAKING MEDICATIONS. Source of Information: Patient, Spouse History of Present Illness Date Seen by Provider: Jul 31, 2022 Time Seen by Provider: 18:40 Initial Comments PT ARRIVES VIA POV FROM HOME WITH PT STATES HIS BLOOD SUGAR IS HIGH--CHECKED IT JUST PRIOR TO ARRIVAL AND WAS 450, SO CAME TO ER HE IS INSULIN DEPENDENT DIABETIC, DOES NOT CHECK HIS BLOOD SUGARS AT HOME AND HAS NOT BEEN TAKING ANY OF HIS MEDICATIONS FOR THE LAST FEW DAYS--ISN'T SURE WHEN HE LAST TOOK HIS MEDICATIONS. WHEN ASKED WHY HE HAS NOT BEEN TAKING HIS MEDICATIONS, HE STATES "I DON'T KNOW" "I GUESS I JUST FORGET TO TAKE THEM" HE FREQUENTLY MISSES DOSES OF HIS MEDICATIONS HE C/O THIRST AND URINARY FREQUENCY AND FEELING WEAK AND TIRED NO OTHER SYMPTOMS NO FEVER OR RECENT ILLNESS SYMPTOMS ARE NO DIFFERENT TODAY IN ANY WAY. STATES THEY ARE GOING OUT OF TOWN TOMORROW MORNING, AND SHE WANTED HIM TO COME HERE TONIGHT AND GET THIS TAKEN CARE OF, AND MADE HIM CHECK HIS BLOOD SUGAR TONIGHT AND IT WAS 450 DESPITE THIS, HE DID NOT TAKE HIS MEDICATIONS. HE STATES IN THE PAST WHEN HE HAS CHECKED HIS BLOOD SUGAR, IT IS USUALLY BETWEEN 200'S-300'S. IN ADDITION TO DIABETES, HE HAS HTN AND HYPERLIPIDEMIA--HE HAS NOT BEEN TAKING HIS MEDICATIONS FOR THESE PROBLEMS EITHER. PCP: DR. SMITH Allergies and Home Medications Allergies Coded Allergies: No Known Drug Allergies (Verified , 03/11/21) Patient Home Medication List Acetaminophen (Acetaminophen) 325 Mg Tablet, 650 MG PO Q6H PRN for PAIN-MILD (1- 4) Prescribed by: KODY SMITH on 02/25/20 0904 Amlodipine Besylate (Amlodipine Besylate) 5 Mg Tablet, 5 MG PO DAILY, (Reported) Entered as Reported by: HERB BLANCO on 07/31/22 1840 Last Action: New Order Buspirone HCl (Buspirone HCl) 10 Mg Tablet, 10 MG PO HS, (Reported) Entered as Reported by: LUTHER RIVERA on 02/18/20 1446 Last Action: Last Taken Edited Cetirizine HCl (Cetirizine HCl) 10 Mg Tablet, 10 MG PO DAILY PRN for ALLEGY SYMPTOMS, (Reported) Entered as Reported by: TRUMAN PICHARDO on 02/24/20 1042 Last Action: Last Taken Edited Insulin Glargine,Hum.rec.anlog (Lantus Solostar) 100 Unit/Ml (3 Ml) Insuln.pen, 60 UNITS SC HS, (Reported) Entered as Reported by: HERB BLANCO on 07/31/22 184 Last Action: New Order Insulin Regular, Human (Humulin R U-500 Kwikpen) 500/Ml (3) Insuln.pen, 10 UNITS SC HS, (Reported) Entered as Reported by: HERB BLANCO on 07/31/22 184 Last Action: New Order Lisinopril (Lisinopril) 40 Mg Tablet, 40 MG PO HS, (Reported) Entered as Reported by: LUTHER RIVERA on 11/15/17 1257 Last Action: Last Taken Edited Sertraline HCl (Sertraline HCl) 100 Mg Tablet, 100 MG PO DAILY, (Reported) Entered as Reported by: LUTHER RIVERA on 02/18/20 1446 Last Action: Last Taken Edited Sertraline HCl (Sertraline HCl) 50 Mg Tablet, 50 MG PO HS, (Reported) Entered as Reported by: TRUMAN PICHARDO on 02/24/20 104 Last Action: Last Taken Edited Discontinued Medications Ciprofloxacin HCl (Cipro) 500 Mg Tablet, 500 MG PO BID Discontinued Reason: No Longer Taking Prescribed by: MARIOLA DALE on 03/10/20914 Last Action: Discontinued Phenazopyridine HCl (Pyridium) 200 Mg Tablet, 1 TAB PO TID Discontinued Reason: No Longer Taking Prescribed by: MARIOLA DALE on 03/10/20914 Last Action: Discontinued Sitagliptin Phosphate (Januvia) 100 Mg Tablet, 100 MG PO DAILY Discontinued Reason: No Longer Taking Prescribed by: KODY SMITH on 02/25/20906 Last Action: Discontinued Review of Systems Review of Systems Constitutional: malaise, weakness EENTM: no symptoms reported Respiratory: no symptoms reported Cardiovascular: no symptoms reported Gastrointestinal: no symptoms reported; No abdominal pain, No diarrhea, No nausea, No vomiting Genitourinary: see HPI; No dysuria; frequency Musculoskeletal: no symptoms reported Skin: no symptoms reported Psychiatric/Neurological: No Symptoms Reported Hematologic/Lymphatic: No Symptoms Reported Immunological/Allergic: no symptoms reported Past Wizulbe-Fdhydw-Ltzuoc Hx Patient Social History Tobacco Use?: No Use of E-Cig and/or Vaping dev: No Substance use?: No Alcohol Use?: Yes Alcohol Frequency: Rarely Pt feels they are or have been: No Seasonal Allergies Seasonal Allergies: No Past Medical History Surgery/Hospitalization HX: constipation, IBS, HTN, DM II, ANXIETY, CHRONIC BACK PAIN, HIGH CHOLESTEROL Surgeries: No Adenoidectomy, Tonsillectomy Respiratory: No Sleep Apnea Currently Using CPAP: No Currently Using BIPAP: No Cardiac: No Hypertension Neurological: No Reproductive Disorders: No Sexually Transmitted Disease: No HIV/AIDS: No Genitourinary: Yes (prostate cancer) Prostate Problems Gastrointestinal: Yes Irritable Bowel Musculoskeletal: No Endocrine: Yes Diabetes, Non-Insulin dep HEENT: No Loss of Vision: Denies Hearing Impairment: Denies Cancer: Yes Prostate Psychosocial: No Anxiety, Depression Integumentary: No Blood Disorders: No Adverse Reaction/Blood Tranf: No Physical Exam Vital Signs Vital Signs - First Documented 07/31/22 18:24 Temp 36.9 Pulse 84 Resp 17 B/P (MAP) 140/94 (109) Pulse Ox 95 O2 Delivery Room Air Capillary Refill : Less Than 3 Seconds Height, Weight, BMI Height: 5'9.00" Weight: 240lbs. 0.0oz. [id number]; 34.00 BMI Method:Stated General Appearance: No Apparent Distress, WD/WN Neck: Normal Inspection Respiratory: Normal Breath Sounds, No Accessory Muscle Use, No Respiratory Distress Cardiovascular: Regular Rate, Rhythm, No Murmur Gastrointestinal: Non Tender Back: No CVA Tenderness Extremity: Normal Inspection Neurologic/Psychiatric: Alert, Oriented x3, No Motor/Sensory Deficits, Normal Mood/Affect, bi manager II-XII Norm as Tested Skin: Normal Color, Warm/Dry Focused Exam Lactate Level 07/31/22 19:19: Lactic Acid Level 2.04*H 07/31/22 21:22: Lactic Acid Level 2.21*H Lactic Acid Level Laboratory Tests Test 07/31/22 19:19 07/31/22 21:22 Lactic Acid Level 2.04 MMOL/L (0.50-2.00) *H 2.21 MMOL/L (0.50-2.00) *H Progress/Results/Core Measures Suspected Sepsis Recent Fever Within 48 Hours: No Infection Criteria Present: None New/Unexplained Altered Menta: No SIRS Temperature: Pulse: 84 Respiratory Rate: 17 Laboratory Tests 07/31/22 18:26: White Blood Count 8.2 Blood Pressure 140 /94 Mean: 109 07/31/22 19:19: Lactic Acid Level 2.04*H 07/31/22 21:22: Lactic Acid Level 2.21*H Laboratory Tests 07/31/22 18:26: Creatinine 1.35H, Platelet Count 256, Total Bilirubin 1.5H Results/Orders Lab Results Laboratory Tests Test 07/31/22 18:25 07/31/22 18:26 07/31/22 18:54 07/31/22 19:19 Range/Units Glucometer 496 *H 70-110 MG/DL White Blood Count 8.2 4.3-11.0 10^3/uL Red Blood Count 4.71 4.30-5.52 10^6/uL Hemoglobin 15.4 13.3-17.7 g/dL Hematocrit 43 40-54 % Mean Corpuscular Volume 90 80-99 fL Mean Corpuscular Hemoglobin 33 25-34 pg Mean Corpuscular Hemoglobin Concent 36 32-36 g/dL Red Cell Distribution Width 12.3 10.0-14.5 % Platelet Count 256 130-400 10^3/uL Mean Platelet Volume 11.1 9.0-12.2 fL Immature Granulocyte % (Auto) 1 % Neutrophils (%) (Auto) 80 H 42-75 % Lymphocytes (%) (Auto) 14 12-44 % Monocytes (%) (Auto) 5 0-12 % Eosinophils (%) (Auto) 0 0-10 % Basophils (%) (Auto) 0 0-10 % Neutrophils # (Auto) 6.5 1.8-7.8 10^3/uL Lymphocytes # (Auto) 1.1 1.0-4.0 10^3/uL Monocytes # (Auto) 0.4 0.0-1.0 10^3/uL Eosinophils # (Auto) 0.0 0.0-0.3 10^3/uL Basophils # (Auto) 0.0 0.0-0.1 10^3/uL Immature Granulocyte # (Auto) 0.1 0.0-0.1 10^3/uL Sodium Level 132 L 135-145 MMOL/L Potassium Level 4.3 3.6-5.0 MMOL/L Chloride Level 97 L 98-107 MMOL/L Carbon Dioxide Level 21 21-32 MMOL/L Anion Gap 14 5-14 MMOL/L Blood Urea Nitrogen 18 7-18 MG/DL Creatinine 1.35 H 0.60-1.30 MG/DL Estimat Glomerular Filtration Rate 58 BUN/Creatinine Ratio 13 Glucose Level 503 *H 70-105 MG/DL Calcium Level 9.7 8.5-10.1 MG/DL Corrected Calcium 9.5 8.5-10.1 MG/DL Magnesium Level 1.4 L 1.6-2.4 MG/DL Total Bilirubin 1.5 H 0.1-1.0 MG/DL Aspartate Amino Transf (AST/SGOT) 28 5-34 U/L Alanine Aminotransferase (ALT/SGPT) 36 0-55 U/L Alkaline Phosphatase 156 H 40-136 U/L Total Protein 7.3 6.4-8.2 GM/DL Albumin 4.3 3.2-4.5 GM/DL Amylase Level 19 L 25-125 U/L Lipase 103 H 8-78 U/L Beta-Hydroxybutyrate (Chem panel) 0.22 0.00-0.27 MMOL/L Urine Color YELLOW Urine Clarity CLEAR Urine pH 6.0 5-9 Urine Specific Binger 1.010 L 1.016-1.022 Urine Protein TRACE H NEGATIVE Urine Glucose (UA) 3+ H NEGATIVE Urine Ketones NEGATIVE NEGATIVE Urine Nitrite NEGATIVE NEGATIVE Urine Bilirubin NEGATIVE NEGATIVE Urine Urobilinogen 0.2 < = 1.0 MG/DL Urine Leukocyte Esterase NEGATIVE NEGATIVE Urine RBC (Auto) TRACE-I H NEGATIVE Urine RBC RARE /HPF Urine WBC NONE /HPF Urine Crystals NONE /LPF Urine Bacteria NEGATIVE /HPF Urine Casts NONE /LPF Urine Mucus SMALL H /LPF Urine Culture Indicated NO Venous Blood pH 7.38 7.31-7.41 Venous Blood Partial Pressure CO2 55 H 40-52 MMHG Venous Blood HCO3 31 H 22-28 MMOL/L Lactic Acid Level 2.04 *H 0.50-2.00 MMOL/L Test 07/31/22 21:22 07/31/22 21:50 Range/Units Lactic Acid Level 2.21 *H 0.50-2.00 MMOL/L My Orders Orders - DRISS,TAJ K DO Accucheck Stat ONCE (07/31/22 18:44) Ed Iv/Invasive Line Start (07/31/22 18:44) Monitor-Rhythm Ecg Trace Only (07/31/22 18:44) Amylase (07/31/22 18:44) Cbc With Automated Diff (07/31/22 18:44) Comprehensive Metabolic Panel (07/31/22 18:44) Lactic Acid Analyzer (07/31/22 18:44) Lipase (07/31/22 18:44) Magnesium (07/31/22 18:44) Ua Culture If Indicated (07/31/22 18:44) Ed Iv/Invasive Line Start (07/31/22 18:44) Ns Iv 1000 Ml (Sodium Chloride 0.9%) (07/31/22 18:45) Venous Blood Gas (07/31/22 18:44) Beta Hydroxybutyrate (07/31/22 18:44) Hemoglobin A1c (07/31/22 18:44) Insulin (Regular) Human (Novolin R (Per (07/31/22 19:45) Ed Iv/Invasive Line Start (07/31/22 19:32) Ns Iv 1000 Ml (Sodium Chloride 0.9%) (07/31/22 19:45) Magnesium 1 Gm/100 Ml Ivpb (Magnesium Kimball (07/31/22 19:45) Accucheck Stat ONCE (07/31/22 20:42) Medications Given in ED Current Medications Medications Dose Ordered Sig/Farhana Route Start Time Stop Time Status Last Admin Dose Admin Insulin Human Regular 20 unit ONCE ONCE IV 07/31/22 19:45 07/31/22 19:46 DC 07/31/22 20:22 20 UNIT Magnesium Sulfate/ Dextrose 100 ml @ 100 mls/hr ONCE ONCE IV 07/31/22 19:45 07/31/22 20:44 DC 07/31/22 20:22 100 MLS/HR Vital Signs/I&O 07/31/22 07/31/22 18:24 18:50 Temp 36.9 36.9 Pulse 84 84 Resp 17 17 B/P (MAP) 140/94 (109) 140/94 Pulse Ox 95 95 O2 Delivery Room Air Room Air Capillary Refill : Less Than 3 Seconds Blood Pressure Mean: 109 Point of Care Testing Finger Stick Blood Glucose: 496 Progress Note : Progress Note ACCUCHECK 495 Departure Impression Primary Impression: Uncontrolled diabetes mellitus Additional Impressions: Non-compliance HTN (hypertension) Hypomagnesemia Disposition: 01 HOME, SELF-CARE Condition: Improved Departure-Patient Inst. Decision time for Depature: 21:54 Referrals: KODY SMITH DO (PCP/Family) Primary Care Physician Patient Instructions: Carb counting for adults with diabetes, High Blood Pressure ED, How to Prevent High Blood Sugar Emergencies in Diabetes, Type 2 Diabetes (DC), Low Magnesium Level (DC) Add. Discharge Instructions: CHECK YOUR BLOOD SUGAR AT LEAST 4 TIMES A DAY--BEFORE EACH MEAL AND AT BEDTIME TAKE YOUR MEDICATIONS PRESCRIBED EVERY DAY--DO NOT MISS DOSES OF YOUR MEDICATIONS!!! HIGH PROTEIN, LOW CARBOHYDRATE DIET NO POP!! YOU MAY DRINK WATER, AND SUGAR-FREE ELECTROLYE SOLUTIONS. FOLLOW UP WITH YOUR DR THIS WEEK FOR FURTHER CARE--CALL IN THE MORNING TO SCHEDULE AN APPOINTMENT All discharge instructions reviewed with patient and/or family. Voiced understanding. TAJ NAQVI DO Jul 31, 2022 19:02
[2022-07-31 19:04] LABS: MAGNESIUM 1.4 MG/DL (1.6-2.4)
[2022-07-31 19:13] LABS: BACTERIA,URINE NEGATIVE /HPF; RBC,URINE RARE /HPF
[2022-07-31] MEDS ORDERED: MAGNESIUM 1 GM/100 ML IVPB 100 ML IV ONE (19:45)
[2022-07-31] MEDS ORDERED: inSUlin (REGULAR) HUMAN 1 UNIT/0.01 ML (CHARGE PER UNIT) IV ONE (19:45)
[2022-07-31 22:12] VITALS: BP 147/84
== END 2022-07-31 22:12 | disposition home or self-care (01) ==
LOC: EDUNIT# 17:59 → ER 18:01
DX: E11.65 Type 2 diabetes mellitus with hyperglycemia (principal); I10 Essential (primary) hypertension; E83.42 Hypomagnesemia; Z79.4 Long term (current) use of insulin; Z91.199 Patient's noncompliance with other medical treatment and regimen due to unspecified reason
CPT/HCPCS: 36415; 80053; 81000; 82010; 82150; 82805; 82947; 83036; 83605; 83690; 83735; 85025; 93041

== ENCOUNTER 2022-09-21 05:37 | Outpatient (CLI) | payer MEDICARE, OTHER ==
[~2022-09-21] VITALS: Ht 175.2 cm; Wt 104.0 kg
[~2022-09-21 05:37] MED LIST changes: +AMLO-250 PO; +INSU100I10 SC; +INSU500I SC
[2022-09-22] MEDS ORDERED: ASPI-808 PO (10:41)
[2022-09-22] MEDS ORDERED: CHOL500061 PO (10:41)
== END 2022-09-22 10:50 | disposition home or self-care (01) ==
LOC: PREOP 05:37
PROVIDERS: ATTEND Surgery
DX: Z01.818 Encounter for other preprocedural examination (principal)

== ENCOUNTER 2022-10-04 10:49 | Day surgery (SDC) | payer MEDICARE, OTHER ==
[~2022-10-04] VITALS: Ht 175 cm; Wt 104.0 kg
[~2022-10-04 10:49] MED LIST changes: +ASPI-808 PO; +CHOL500061 PO
[2022-10-04] MEDS ORDERED: LACTATED RINGERS 1,000 ML 1,000 ML IV STA (10:58)
[2022-10-04 11:37] VITALS: BP 150/82
--- NOTE | 2022-10-04 13:07 | Progress Note-Pre Operative ---
Pre-Operative Progress Note Date H&P Reviewed: Oct 04, 2022 Time H&P Reviewed: 13:06 History & Physical: H&P Reviewed, Patient Examed, No changes noted Pre-Operative Diagnosis: screening colonoscopy ANIL EVANS DO Oct 04, 2022 13:07
[2022-10-04 14:10] VITALS: BP 112/60
--- NOTE | 2022-10-04 14:10 | Progress Note-Post Operative ---
Post-Operative Progess Note Surgeon (s)/Home Economist (s) Surgeon ANIL EVANS DO Home Economist: none Pre-Operative Diagnosis screening colonoscopy Post-Operative Diagnosis diverticulosis Procedure & Operative Findings Date of Procedure 10/04/22 Procedure Performed/Findings colonoscopy Anesthesia Type per RAILROAD BRAKE OPERATOR Estimated Blood Loss Estimated blood loss (mL): none Specimens/Packing Specimens Removed none ANIL EVANS DO Oct 04, 2022 14:10
--- NOTE | 2022-10-04 14:12 | Discharge Inst-Simple/Standard ---
Discharge Inst-Standard Patient Instructions/Follow Up Plan of Care/Instructions/FU: 10 years, or 5 years if family history of colon cancer or history of polyps. if any symptoms follow up as needed. Activity as Tolerated: Yes Discharge Diet: Regular Diet (high fibers) ANIL EVANS DO Oct 04, 2022 14:12
[2022-10-04 14:20] VITALS: BP 108/60
--- NOTE | 2022-10-04 14:34 | Anesthesia-General Post-Op ---
MAC Patient Condition Mental Status/LOC: Same as Preop Cardiovascular: Satisfactory Nausea/Vomiting: Absent Respiratory: Satisfactory Pain: Controlled Complications: Absent Post Op Complications Complications None Follow Up Care/Instructions Patient Instructions None needed. Anesthesiology Discharge Order Discharge Order Patient is doing well, no complaints, stable vital signs, no apparent adverse anesthesia problems. No complications reported per nursing. BROOKE WHITE DO Oct 04, 2022 14:34
[2022-10-04 14:45] VITALS: BP 108/60
--- NOTE | 2022-10-04 19:19 | OPERATIVE REPORT ---
DATE OF SERVICE: 10/04/2022 PREOPERATIVE DIAGNOSIS: Screening colonoscopy. POSTOPERATIVE DIAGNOSES: 1. Normal colon. 2. Diverticulosis. PROCEDURE: Colonoscopy. SURGEON: Anil Gagnon DO ANESTHESIA: Per BRICK PAVER. ESTIMATED BLOOD LOSS: None. COMPLICATIONS: None. INDICATIONS: The patient is a 66-year-old male, needing screening colonoscopy. He understands risks and benefits of procedure and wished to proceed. Consent was signed in chart. DESCRIPTION OF PROCEDURE: The patient was taken to the endoscopy suite, placed in left lateral recumbent position. Timeout was performed. Digital rectal exam was performed. No palpable polyps, masses or ulcerations. Scope was inserted in the rectum, advanced all the way to the cecum with minimal difficulty. Prep was adequate with irrigation and suction. Scope was slowly retracted back. No polyps, masses or ulcerations within the cecum, ascending, transverse, descending and sigmoid colon. A small diverticulosis was present. Once in the rectum, scope was retroflexed noting no other pathology. Scope was returned to its normal position, slowly withdrawn until completely removed. The patient tolerated the procedure well without complications, taken to recovery in stable condition. RECOMMENDATIONS: The patient will need repeat colonoscopy in 10 years unless history of polyps, or family history of colon cancer, which will then be 5 years. Job ID: [id number] DocumentID: [id number] Dictated Date: 10/04/2022 14:32:55 Traffic Chief Date: 10/04/2022 19:17:00 Dictated By: ANIL GAGNON DO
== END 2022-10-04 14:45 | disposition home or self-care (01) ==
LOC: ENDO 10:49
PROVIDERS: ATTEND Surgery
DX: Z12.11 Encounter for screening for malignant neoplasm of colon (principal); K57.30 Diverticulosis of large intestine without perforation or abscess without bleeding; E11.9 Type 2 diabetes mellitus without complications; E66.9 Obesity, unspecified; G47.33 Obstructive sleep apnea (adult) (pediatric); Z85.46 Personal history of malignant neoplasm of prostate; Z79.4 Long term (current) use of insulin; Z68.33 Body mass index [BMI] 33.0-33.9, adult
CPT/HCPCS: 82947; G0121

== ENCOUNTER 2022-10-09 19:24 | Inpatient (IN) | payer MEDICARE, OTHER ==
[~2022-10-09] VITALS: Ht 175.3 cm; Wt 106.5 kg
--- NOTE | 2022-10-09 19:42 | Diagnostic Imaging Report ---
CHEST 1 VIEW, AP/PA ONLY Indication: Chest pain. Comparison: 02/23/2020 Findings: No focal airspace disease in the visualized lungs. No pleural effusion or pneumothorax. Normal cardiomediastinal silhouette. Impression: 1. No acute cardiopulmonary process by portable radiography. Dictated by: Dictated on workstation # [id number]
[2022-10-09 19:45] LABS: BASOPHILS % (AUTO) 0 % (0-10); EOSINOPHILS % (AUTO) 1 % (0-10); HEMATOCRIT 41 % (40-54); HEMOGLOBIN 14.2 g/dL (13.3-17.7); LYMPHOCYTES # (AUTO) 1.1 10^3/uL (1.0-4.0); LYMPHOCYTES % (AUTO) 13 % (12-44); MEAN CORPUSCULAR HEMOGLOBIN 33 pg (25-34); MEAN CORPUSCULAR HGB CONC 35 g/dL (32-36); MEAN CORPUSCULAR VOLUME 95 fL (80-99); MONOCYTES # (AUTO) 0.5 10^3/uL (0.0-1.0); MONOCYTES % (AUTO) 6 % (0-12); NEUTROPHILS # (AUTO) 6.6 10^3/uL (1.8-7.8); NEUTROPHILS % (AUTO) 80 % (42-75); PLATELET COUNT 276 10^3/uL (130-400); WHITE BLOOD COUNT 8.2 10^3/uL (4.3-11.0)
[2022-10-09] MEDS ORDERED: NITROGLYCERIN 0.4 MG SL TABLETS BTL 25'S SL PRN ×2 (19:45→22:15)
[2022-10-09] MEDS ORDERED: ASPIRIN 81 MG CHEWABLE TABLET PO ONE (19:45)
--- NOTE | 2022-10-09 19:48 | ED Chest Pain ---
General Chief Complaint: Chest Pain Stated Complaint: CHEST PAIN Nursing Triage Note: PATIENT STATES CHEST PAIN STARTED WHILE SITTING. STATES RADIATES TO BACK AND JAW. 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 DENIES SOB, DIZZINESS, IRREG HEART. Source: patient History of Present Illness Date Seen by Provider: Oct 09, 2022 Allergies and Home Medications Allergies Coded Allergies: No Known Drug Allergies (Verified , 09/22/22) Patient Home Medication List Acetaminophen (Acetaminophen) 325 Mg Tablet, 650 MG PO Q6H PRN for PAIN-MILD (1- 4) Prescribed by: KODY SMITH on 02/25/20 0904 Amlodipine Besylate (Amlodipine Besylate) 5 Mg Tablet, 5 MG PO DAILY, (Reported) Entered as Reported by: HERB BLANCO on 07/31/22 184 Aspirin (Aspirin) 325 Mg Tablet, 325 MG PO DAILY, (Reported) Entered as Reported by: Deborah Ram on 09/22/22 1041 Buspirone HCl (Buspirone HCl) 10 Mg Tablet, 20 MG PO HS, (Reported) Entered as Reported by: LUTHER RIVERA on 02/18/20 1446 Cetirizine HCl (Cetirizine HCl) 10 Mg Tablet, 10 MG PO DAILY PRN for ALLEGY SYMPTOMS, (Reported) Entered as Reported by: TRUMAN PICHARDO on 02/24/20 1042 Cholecalciferol (Vitamin D3) (Vitamin D3) 125 Mcg (5000 Unit) Tab.rapdis, 125 MCG PO DAILY, (Reported) Entered as Reported by: Deborah Ram on 09/22/22 1041 Insulin Glargine,Hum.rec.anlog (Lantus Solostar) 100 Unit/Ml (3 Ml) Insuln.pen, 100 UNITS SC HS, (Reported) Entered as Reported by: HERB BLANCO on 07/31/22 1840 Insulin Regular, Human (Humulin R U-500 Kwikpen) 500/Ml (3) Insuln.pen, 10 UNITS SC BID, (Reported) Entered as Reported by: HERB BLANCO on 07/31/22 1840 Lisinopril (Lisinopril) 40 Mg Tablet, 40 MG PO HS, (Reported) Entered as Reported by: LUTHER RIVERA on 11/15/17 1257 Sertraline HCl (Sertraline HCl) 100 Mg Tablet, 100 MG PO DAILY, (Reported) Entered as Reported by: LUTHER RIVERA on 02/18/20 1446 Sertraline HCl (Sertraline HCl) 50 Mg Tablet, 50 MG PO HS, (Reported) Entered as Reported by: TRUMAN PICHARDO on 02/24/20 1042 Past Zyduxpr-Riipev-Fqzmgm Hx Immunizations Up To Date First/Initial COVID19 Vaccinat: UNSURE OF Second COVID19 Vaccination Daniele: UNSURE OF DATE Third COVID19 Vaccination Date: UNSURE OF Seasonal Allergies Seasonal Allergies: Yes (MILD) Past Medical History Surgery/Hospitalization HX: constipation, IBS, HTN, DM II, ANXIETY, CHRONIC BACK PAIN, HIGH CHOLESTEROL Surgeries: Yes ("CYST" REMOVED FROM ABDOMEN;RADIATION SEED IMPLANTS IN PROSTATE 2020) Adenoidectomy, Tonsillectomy Respiratory: Yes Sleep Apnea Currently Using CPAP: Yes Currently Using BIPAP: No Cardiac: Yes High Cholesterol, Hypertension Neurological: No Reproductive Disorders: No Sexually Transmitted Disease: No HIV/AIDS: No Genitourinary: Yes (prostate cancer) Prostate Problems Gastrointestinal: Yes Irritable Bowel Musculoskeletal: No Endocrine: Yes Diabetes, Insulin dep HEENT: Yes (S/P TONSILLECTOMY) Tonsilitis Loss of Vision: Denies Hearing Impairment: Denies Cancer: Yes Prostate Did You Recieve Any Treatments: Yes What Type of Treatment Did You: Radiation Psychosocial: Yes Anxiety, Depression Integumentary: Yes ("CYST" ON ABDOMEN REMOVED. ) Blood Disorders: No Adverse Reaction/Blood Tranf: No Physical Exam Vital Signs Vital Signs - First Documented 10/09/22 19:25 Pulse 73 Resp 20 B/P (MAP) 131/81 (98) Pulse Ox 97 O2 Delivery Room Air Capillary Refill : Less Than 3 Seconds Height, Weight, BMI Height: 5'9.00" Weight: 240lbs. 0.0oz. 108.916896ym; 30.00 BMI Method:Stated Progress/Results/Core Measures Results/Orders Lab Results Laboratory Tests Test 10/09/22 19:36 Range/Units White Blood Count 8.2 4.3-11.0 10^3/uL Red Blood Count 4.30 4.30-5.52 10^6/uL Hemoglobin 14.2 13.3-17.7 g/dL Hematocrit 41 40-54 % Mean Corpuscular Volume 95 80-99 fL Mean Corpuscular Hemoglobin 33 25-34 pg Mean Corpuscular Hemoglobin Concent 35 32-36 g/dL Red Cell Distribution Width 12.1 10.0-14.5 % Platelet Count 276 130-400 10^3/uL Mean Platelet Volume 10.0 9.0-12.2 fL Immature Granulocyte % (Auto) 1 % Neutrophils (%) (Auto) 80 H 42-75 % Lymphocytes (%) (Auto) 13 12-44 % Monocytes (%) (Auto) 6 0-12 % Eosinophils (%) (Auto) 1 0-10 % Basophils (%) (Auto) 0 0-10 % Neutrophils # (Auto) 6.6 1.8-7.8 10^3/uL Lymphocytes # (Auto) 1.1 1.0-4.0 10^3/uL Monocytes # (Auto) 0.5 0.0-1.0 10^3/uL Eosinophils # (Auto) 0.0 0.0-0.3 10^3/uL Basophils # (Auto) 0.0 0.0-0.1 10^3/uL Immature Granulocyte # (Auto) 0.1 0.0-0.1 10^3/uL Prothrombin Time 13.5 12.2-14.7 SEC INR Comment 1.0 0.8-1.4 Activated Partial Thromboplast Time 28 24-35 SEC D-Dimer 0.73 H 0.00-0.49 UG/ML Sodium Level 138 135-145 MMOL/L Potassium Level 4.2 3.6-5.0 MMOL/L Chloride Level 107 98-107 MMOL/L Carbon Dioxide Level 17 L 21-32 MMOL/L Anion Gap 14 5-14 MMOL/L Blood Urea Nitrogen 21 H 7-18 MG/DL Creatinine 1.15 0.60-1.30 MG/DL Estimat Glomerular Filtration Rate 71 BUN/Creatinine Ratio 18 Glucose Level 248 H 70-105 MG/DL Calcium Level 9.2 8.5-10.1 MG/DL Corrected Calcium 9.0 8.5-10.1 MG/DL Magnesium Level 1.7 1.6-2.4 MG/DL Total Bilirubin 0.8 0.1-1.0 MG/DL Aspartate Amino Transf (AST/SGOT) 30 5-34 U/L Alanine Aminotransferase (ALT/SGPT) 31 0-55 U/L Alkaline Phosphatase 129 40-136 U/L Total Creatine Kinase 243 H 30-200 U/L Creatine Kinase MB 6.5 <6.6 NG/ML Myoglobin 93.9 H 10.0-92.0 NG/ML Troponin I 0.741 *H <0.028 NG/ML B-Type Natriuretic Peptide 40.9 <100.0 PG/ML Total Protein 7.5 6.4-8.2 GM/DL Albumin 4.3 3.2-4.5 GM/DL Amylase Level 32 25-125 U/L Lipase 56 8-78 U/L My Orders Orders - TAJ NAQVI DO Ekg Tracing (10/09/22:) Ekg Tracing (10/09/22:) Cbc With Automated Diff (10/09/22:) Magnesium (10/09/22:) Chest 1 View, Ap/Pa Only (10/09/22:) Comprehensive Metabolic Panel (10/09/22 19:) Myoglobin Serum (10/09/22 19:) Protime With Inr (10/09/22:) Partial Thromboplastin Time (10/09/22:) O2 (10/09/22:) Monitor-Rhythm Ecg Trace Only (10/09/22:) Ed Iv/Invasive Line Start (10/09/22 19:) Creatine Kinase (10/09/22 19:) Creatine Kinase Mb (10/09/22:) Lipase (10/09/22 19:26) Amylase (10/09/22 19:26) Bnp Philip (10/09/22 19:26) Fibrin Degradation Products (10/09/22 19:) Troponin I [place] (10/09/22 19:26) Nitroglycerin 0.4 Mg Btl 25's (Nitroglyc (10/09/22 19:45) Aspirin Chewable Tablet (Aspirin Chewabl (10/09/22 19:45) Ticagrelor Tablet (Brilinta Tablet) (10/09/22 20:45) Heparin Drip 28365 Unit/500ml (Heparin (10/09/22 20:45) Heparin (Bolus Per Protocol) (Heparin (B (10/09/22 20:45) Morphine Injection (Morphine Injection (10/09/22 20:45) Medications Given in ED Current Medications Medications Dose Ordered Sig/Farhana Route Start Time Stop Time Status Last Admin Dose Admin Aspirin 324 mg ONCE ONCE PO 10/09/22 19:45 10/09/22 19:46 DC 10/09/22 19:49 324 MG Nitroglycerin 0.4 mg UD PRN SL 10/09/22 19:45 10/09/22 19:52 0.4 MG Vital Signs/I&O 10/09/22 19:25 Pulse 73 Resp 20 B/P (MAP) 131/81 (98) Pulse Ox 97 O2 Delivery Room Air Blood Pressure Mean: 98 Diagnostic Imaging Comments CXR--PER RADIOLOGIST REPORT AT 1947 Findings: No focal airspace disease in the visualized lungs. No pleural effusion or pneumothorax. Normal cardiomediastinal silhouette. Impression: 1. No acute cardiopulmonary process by portable radiography. Reviewed: Reviewed by Me Departure Impression Primary Impression: NSTEMI (non-ST elevated myocardial infarction) Additional Impressions: Uncontrolled diabetes mellitus HTN (hypertension) Disposition: ADMITTED INPATIENT Condition: Improved Admissions Decision to Admit Reason: Admit from ER (General) Decision to Admit/Date: Oct 09, 2022 Time/Decision to Admit Time: 20:35 Departure-Patient Inst. Referrals: KODY SMITH DO (PCP/Family) Primary Care Physician TAJ NAQVI DO Oct 09, 2022 19:48
[2022-10-09 20:03] LABS: PROTHROMBIN TIME PATIENT 13.5 SEC (12.2-14.7)
[2022-10-09 20:06] LABS: FIBRIN DEGRADATION PRODUCTS 0.73 UG/ML (0.00-0.49)
[2022-10-09 20:09] LABS: ALBUMIN 4.3 GM/DL (3.2-4.5); BILIRUBIN,TOTAL 0.8 MG/DL (0.1-1.0); CALCIUM 9.2 MG/DL (8.5-10.1); CREATININE SERUM 1.15 MG/DL (0.60-1.30); MAGNESIUM 1.7 MG/DL (1.6-2.4); POTASSIUM 4.2 MMOL/L (3.6-5.0); TOTAL PROTEIN 7.5 GM/DL (6.4-8.2)
[2022-10-09 20:16] LABS: CREATINE KINASE MB 6.5 NG/ML (<6.6)
[2022-10-09] MEDS ORDERED: morphine INJ 4 MG/ML 1 ML (VIAL/SYRINGE) IVP ONE (20:45)
[2022-10-09] MEDS ORDERED: HEParin 1000 UNIT/ML (10ML VIAL) FOR BOLUS IV ONE (20:45)
[2022-10-09] MEDS ORDERED: TICAGRELOR 90 MG TABLET (BRILINTA) PO ONE (20:45)
[2022-10-09] MEDS ORDERED: HEParin DRIP 25000 UNIT/500ML 500 ML IV ONE (20:45)
[2022-10-09] MEDS ORDERED: LACTULOSE SYRUP 10GM/15ML 30ML UDC PO PRN (22:15)
[2022-10-09] MEDS ORDERED: NS IV 500 ML 500 ML IV PRN (22:15)
[2022-10-09] MEDS ORDERED: HEParin DRIP 25000 UNIT/500ML 500 ML IV SCH (22:15)
[2022-10-09] MEDS ORDERED: ANTACID SUSPENSION 30 ML UDC PO PRN (22:15)
[2022-10-09] MEDS ORDERED: diphenhydrAMINE 25 MG TABLET PO PRN (22:15)
[2022-10-09] MEDS ORDERED: ONDANSETRON INJECTION 4 MG/2 ML (SDV) IV PRN (22:15)
[2022-10-09] MEDS ORDERED: MILK OF MAGNESIA 400 MG/5 ML 30 ML UDC PO PRN (22:15)
[2022-10-09] MEDS ORDERED: HYDROmorphone INJECTION 2 MG/ML VIAL IV PRN (22:15)
[2022-10-09] MEDS ORDERED: diphenhydrAMINE INJ 50 MG/ML VIAL IVP PRN (22:15)
[2022-10-09] MEDS ORDERED: BISACODYL 10 MG SUPPOSITORY PR PRN (22:15)
[2022-10-09] MEDS ORDERED: morphine INJ 4 MG/ML 1 ML (VIAL/SYRINGE) IV PRN (22:15)
[2022-10-09] MEDS ORDERED: LORazepam 0.5 MG TABLET PO PRN (22:15)
[2022-10-09] MEDS ORDERED: MELATONIN 3 MG TABLET PO PRN (22:15)
[2022-10-09] MEDS ORDERED: CALCIUM CARBONATE 500 MG CHEW TABLET PO PRN (22:15)
[2022-10-09] MEDS ORDERED: ACETAMINOPHEN 325 MG TABLET PO PRN (22:15)
[2022-10-09] MEDS ORDERED: oxyCODONE IMMEDIATE RELEASE 5 MG TABLET PO PRN (22:15)
[2022-10-09] MEDS ORDERED: HEParin 1000 UNIT/ML (10ML VIAL) FOR BOLUS IV PRN (22:15)
[2022-10-09] MEDS ORDERED: ONDANSETRON 4 MG ORAL DISSOLVE TABLET PO PRN (22:15)
[2022-10-09] MEDS ORDERED: PATIENT MAY USE OWN MEDS, ALL PO SCH (22:15)
[2022-10-09] MEDS ORDERED: inSUlin ASPART 1 UNIT/0.01 ML (PER UNIT) SC SCH (22:30)
[2022-10-09] MEDS ORDERED: inSUlin DETERMIR 1 UNIT/0.01 ML (CHARGE PER UNIT) SQ SCH (22:30)
--- NOTE | 2022-10-09 22:55 | Tele-ICU Progress Note ---
Progress Note 66M with DM, HTN, HLD, IBS, prostate ca s/p XRT seeds 2020, VIET, routine colonoscopy 5 days ago, presented with abrupt onset chest pain with radiation to the back and jaw. Started while sitting. Took an aspirin prior to admission. In ED received heparin, morphine, ASA, brilinta, nitro SL x1 with complete resolution of pain. Currently sitting up eating a sandwhich, symptom free. SpOw 94% RA, 159/74, HR 57 sinus with probable bundle on tele. - Chest Pain: with mild troponin elevation at 0.741. Has received morphine, nitro with resolution of pain. Radiation to the back is concerning for aortic pathology. If cardiology in agreement, will get CTA. Otherwise continue AC/AP as per cardiology recomondations. Possible cath in AM. - DM: Apparently has not been taking PM levemir. Glucose was 248, now eating a sandwhich. Will give his prescribed 10u levemir tonight. Increase ISS A ACHS to ISS B q6h, Send ketones due to anion gap. Suspicion for DKA low, will not start empiric gtt. - metabolic acidosis: mild metabolic acidosis with bicarb 17 and gap 14. Will send lactic, ketones. Patient assessed via real time audiovisual communication system. CCT9 min Focused Exam Height, Weight, BMI Height: 5'9.00" Weight: 240lbs. 0.0oz. [id number]; 33.97 BMI Method:Stated KRYSTLE BEEBE MD Oct 09, 2022 22:55
[2022-10-10] MEDS ORDERED: NS 100 ML (IVPB) BAG IV ONE
[2022-10-10] MEDS ORDERED: IOHEXOL 350 MG/ML 100 ML (OMNIPAQUE 350) VIAL IV ONE
[2022-10-10] MEDS ORDERED: CATHETER FLUSH 10 ML SYR IV PRN
[2022-10-10] MEDS ORDERED: HOLD METFORMIN - RECEIVED CONTRAST 20 ML VIAL IV SCH
[2022-10-10] MEDS: NS IV 1000 ML 1,000 ML IV SCH ×4 (00:32→21:05)
[2022-10-10 02:51] LABS: BASOPHILS % (AUTO) 0 % (0-10); EOSINOPHILS # (AUTO) 0.1 10^3/uL (0.0-0.3); EOSINOPHILS % (AUTO) 1 % (0-10); HEMATOCRIT 37 % (40-54); HEMOGLOBIN 13.1 g/dL (13.3-17.7); LYMPHOCYTES # (AUTO) 1.6 10^3/uL (1.0-4.0); LYMPHOCYTES % (AUTO) 18 % (12-44); MEAN CORPUSCULAR HEMOGLOBIN 33 pg (25-34); MEAN CORPUSCULAR HGB CONC 35 g/dL (32-36); MEAN CORPUSCULAR VOLUME 93 fL (80-99); MEAN PLATELET VOLUME 9.9 fL (9.0-12.2); MONOCYTES # (AUTO) 0.4 10^3/uL (0.0-1.0); MONOCYTES % (AUTO) 4 % (0-12); NEUTROPHILS # (AUTO) 6.6 10^3/uL (1.8-7.8); NEUTROPHILS % (AUTO) 76 % (42-75); PLATELET COUNT 221 10^3/uL (130-400); WHITE BLOOD COUNT 8.6 10^3/uL (4.3-11.0)
[2022-10-10 03:01] LABS: POTASSIUM 3.5 MMOL/L (3.6-5.0)
[2022-10-10 03:02] LABS: ALBUMIN 3.8 GM/DL (3.2-4.5)
[2022-10-10 03:04] LABS: TOTAL PROTEIN 6.6 GM/DL (6.4-8.2)
[2022-10-10 03:06] LABS: BILIRUBIN,TOTAL 0.7 MG/DL (0.1-1.0)
[2022-10-10 03:08] LABS: CREATININE SERUM 1.06 MG/DL (0.60-1.30)
[2022-10-10 03:10] LABS: MAGNESIUM 1.5 MG/DL (1.6-2.4)
[2022-10-10] MEDS: POTASSIUM CHLORIDE 20 MEQ TABLET PO SCH (05:21)
[2022-10-10] MEDS: POTASSIUM CL 10MEQ/50ML IVPB 50 ML IV SCH ×4 (05:21→16:24)
[2022-10-10] MEDS: MAGNESIUM 1 GM/100 ML IVPB 100 ML IV SCH ×4 (05:21→08:29)
[2022-10-10] MEDS ORDERED: MAGNESIUM 1 GM/100 ML IVPB 400 ML IV ONE (05:29)
[2022-10-10] MEDS ORDERED: POTASSIUM CHLORIDE 20 MEQ TABLET PO ONE (05:30)
[2022-10-10] MEDS: inSUlin ASPART 1 UNIT/0.01 ML (PER UNIT) SC SCH ×5 (05:33→21:11)
[2022-10-10] MEDS ORDERED: inSUlin ASPART 1 UNIT/0.01 ML (PER UNIT) SC SCH (06:00)
--- NOTE | 2022-10-10 08:19 | Diagnostic Imaging Report ---
Indication: 66-year-old male with chest pain suspected aortic dissection Comparisons: CT abdomen pelvis 12/20/2019 FINDINGS: There is no axillary adenopathy. There is no mediastinal or hilar adenopathy. Cardiac contour is normal. Few coronary calcifications are seen. Thoracic aortic contour is also normal with no evidence of aneurysm or dissection. There is normal arch origin of great vessels. Pulmonary outflow tract as well as right and left pulmonary arteries and their segmental and subsegmental branches are patent. Lungs show few a subpleural dependent atelectatic infiltrates but no consolidations. There is no effusion or pneumothorax. The abdominal aorta is also normal in caliber with normal origin of the visceral arteries. There is normal patency of the common iliac and visualized external and internal iliac arteries. There is some renal cortical thinning. There is otherwise symmetrical perfusion of contrast without evidence of obstructive uropathy. The visualized solid and luminal viscera are grossly normal. There is some colonic diverticular disease primarily in the left colon. Bone windows show degenerative changes in the axial skeleton. IMPRESSION: 1. No CT angiographic evidence for aortic aneurysm, dissection or pulmonary embolism. 2. Few coronary calcifications are seen. 3. Some mild renal cortical thinning. 4. Left colon diverticulosis but no evidence of acute diverticulitis. Additional nonemergent findings as described above. Dictated by: Dictated on workstation # [id number]
[2022-10-10] MEDS ORDERED: NS IV 1000 ML 1,000 ML ONE (08:20)
[2022-10-10] MEDS ORDERED: LIDOCAINE 1% INJ 20 ML VIAL ONE (08:20)
[2022-10-10] MEDS ORDERED: HEParin (CATH LAB) 2,000 ML IV ONE (08:20)
[2022-10-10] MEDS ORDERED: fentaNYL INJECTION 100 MCG/2 ML VIAL ONE (08:30)
[2022-10-10] MEDS ORDERED: VERAPAMIL 5 MG/2 ML (CALAN) VIAL IV ONE (08:30)
[2022-10-10] MEDS ORDERED: NITRO DRIP 25000 MCG/D5W 250 ML IV ONE (08:30)
[2022-10-10] MEDS ORDERED: HEParin 1000 UNIT/ML (10ML VIAL) FOR BOLUS ONE (08:30)
[2022-10-10] MEDS ORDERED: MIDAZOLAM INJ 5 MG/5 ML VIAL ONE (08:31)
--- NOTE | 2022-10-10 08:38 | Consultation-Cardiology ---
HPI-Cardiology Cardiology Consultation Date of Consultation 10/10/22 Date of Admission Time Seen by Provider: 08:36 Indication: Chest pain HPI 66-year-old gentleman with history of hypertension, hyperlipidemia and diabetes mellitus, started to have chest pain described as dull achiness in the retrosternal area radiating to the back and neck. Patient was noted to have elevation in troponin with non-ST elevation myocardial infarction. He is currently not having active chest pain Denied any similar episode in the past. Patient has strong family history of heart disease Home Medications & Allergies Allergies: Coded Allergies: No Known Drug Allergies (Verified , 09/22/22) Home Medication List Reviewed: Yes [id number] Hx Patient Social History Marital Status: Employed/Student: employed [employer] Smoke Exposure: No Recent Hopitalizations: No Alcohol Use?: Yes Immunizations Up To Date Date of Influenza Vaccine: Nov 10, 2021 Past Medical History Discussed below Family Medical History Significant Family History: Heart Disease Review of Systems-General Review of Systems Constitutional: no symptoms reported, see HPI EENTM: see HPI, no symptoms reported Respiratory: no symptoms reported, see HPI Cardiovascular: see HPI, chest pain; No edema, No Hx of Intervention, No palpitations, No syncope, No vascular heart diseas, No other Gastrointestinal: no symptoms reported, see HPI Genitourinary: no symptoms reported, see HPI Musculoskeletal: no symptoms reported, see HPI Skin: no symptoms reported, see HPI Psychiatric/Neurological: No Symptoms Reported, See HPI Reviewed Test Results Reviewed Test Results Lab Laboratory Tests Test 10/09/22 19:36 10/09/22 22:42 10/10/22 01:10 10/10/22 02:43 Range/Units White Blood Count 8.2 8.6 4.3-11.0 10^3/uL Red Blood Count 4.30 4.00 L 4.30-5.52 10^6/uL Hemoglobin 14.2 13.1 L 13.3-17.7 g/dL Hematocrit 41 37 L 40-54 % Mean Corpuscular Volume 95 93 80-99 fL Mean Corpuscular Hemoglobin 33 33 25-34 pg Mean Corpuscular Hemoglobin Concent 35 35 32-36 g/dL Red Cell Distribution Width 12.1 12.0 10.0-14.5 % Platelet Count 276 221 130-400 10^3/uL Mean Platelet Volume 10.0 9.9 9.0-12.2 fL Immature Granulocyte % (Auto) 1 0 % Neutrophils (%) (Auto) 80 H 76 H 42-75 % Lymphocytes (%) (Auto) 13 18 12-44 % Monocytes (%) (Auto) 6 4 0-12 % Eosinophils (%) (Auto) 1 1 0-10 % Basophils (%) (Auto) 0 0 0-10 % Neutrophils # (Auto) 6.6 6.6 1.8-7.8 10^3/uL Lymphocytes # (Auto) 1.1 1.6 1.0-4.0 10^3/uL Monocytes # (Auto) 0.5 0.4 0.0-1.0 10^3/uL Eosinophils # (Auto) 0.0 0.1 0.0-0.3 10^3/uL Basophils # (Auto) 0.0 0.0 0.0-0.1 10^3/uL Immature Granulocyte # (Auto) 0.1 0.0 0.0-0.1 10^3/uL Prothrombin Time 13.5 12.2-14.7 SEC INR Comment 1.0 0.8-1.4 Activated Partial Thromboplast Time 28 74 H 24-35 SEC D-Dimer 0.73 H 0.00-0.49 UG/ML Sodium Level 138 141 135-145 MMOL/L Potassium Level 4.2 3.5 L 3.6-5.0 MMOL/L Chloride Level 107 107 98-107 MMOL/L Carbon Dioxide Level 17 L 21 21-32 MMOL/L Anion Gap 14 13 5-14 MMOL/L Blood Urea Nitrogen 21 H 19 H 7-18 MG/DL Creatinine 1.15 1.06 0.60-1.30 MG/DL Estimat Glomerular Filtration Rate 71 78 BUN/Creatinine Ratio 18 18 Glucose Level 248 H 233 H 70-105 MG/DL Calcium Level 9.2 9.0 8.5-10.1 MG/DL Corrected Calcium 9.0 9.2 8.5-10.1 MG/DL Magnesium Level 1.7 1.5 L 1.6-2.4 MG/DL Total Bilirubin 0.8 0.7 0.1-1.0 MG/DL Aspartate Amino Transf (AST/SGOT) 30 35 H 5-34 U/L Alanine Aminotransferase (ALT/SGPT) 31 26 0-55 U/L Alkaline Phosphatase 129 123 40-136 U/L Total Creatine Kinase 243 H 30-200 U/L Creatine Kinase MB 6.5 <6.6 NG/ML Myoglobin 93.9 H 10.0-92.0 NG/ML Troponin I 0.741 *H 2.096 *H <0.028 NG/ML B-Type Natriuretic Peptide 40.9 <100.0 PG/ML Total Protein 7.5 6.6 6.4-8.2 GM/DL Albumin 4.3 3.8 3.2-4.5 GM/DL Amylase Level 32 25-125 U/L Lipase 56 8-78 U/L Lactic Acid Level 1.03 0.50-2.00 MMOL/L Glucometer 215 H 70-110 MG/DL Phosphorus Level 3.0 2.3-4.7 MG/DL Triglycerides Level 478 H <150 MG/DL Cholesterol Level 152 < 200 MG/DL LDL Cholesterol Direct 94 1-129 MG/DL VLDL Cholesterol 96 H 5-40 MG/DL HDL Cholesterol 24 L 40-60 MG/DL Physical Exam Physical Exam Vital Signs Vital Signs - First Documented 10/09/22 10/09/22 19:25 21:59 Pulse 73 Resp 20 B/P (MAP) 131/81 (98) Pulse Ox 97 O2 Delivery Room Air O2 Flow Rate 2.00 Capillary Refill : Less Than 3 Seconds Height, Weight, BMI Height: 5'9.00" Weight: 240lbs. 0.0oz. [id number]; 34.07 BMI Method:Stated General Appearance: No Apparent Distress, WD/WN Eyes: Bilateral Eye Normal Inspection, Bilateral Eye PERRL, Bilateral Eye EOMI HEENT: PERRL/EOMI, TMs Normal, Normal ENT Inspection, Pharynx Normal, Moist Mucous Membranes Neck: Full Range of Motion, Normal Inspection, Non Tender, Supple, Carotid Bruit Respiratory: Chest Non Tender, Normal Breath Sounds, No Accessory Muscle Use, No Respiratory Distress Cardiovascular: Regular Rate, Rhythm, No Edema, No Gallop, No JVD, No Murmur, Normal Peripheral Pulses Gastrointestinal: Normal Bowel Sounds, No Organomegaly, No Pulsatile Mass, Non Tender, Soft Back: Normal Inspection, No CVA Tenderness, No Vertebral Tenderness Extremity: Normal Capillary Refill, Normal Inspection, Normal Range of Motion, Non Tender, No Calf Tenderness, No Pedal Edema Neurologic/Psychiatric: Alert, Oriented x3, No Motor/Sensory Deficits, Normal Mood/Affect Skin: Normal Color, Warm/Dry Lymphatic: No Adenopathy A/P-Cardiology Admission Diagnosis Non-ST elevation myocardial infarction Chest pain Hypertension Hyperlipidemia Assessment/Plan Non-ST elevation myocardial infarction, chest pain Planning for cardiac catheterization Coronary artery disease, multiple risk factors. Plan to proceed with cardiac catheterization Hypertension, restart home medication monitor blood pressure Hyperlipidemia, monitor lipids Diabetes mellitus, followed and managed by primary care physician Obesity, BMI 34, discussed weight loss Strong family history of heart disease Clinical Quality Measures AMI/AHF: ASA po Prior to arrival: Yes MARY DAMON MD Oct 10, 2022 08:38
--- NOTE | 2022-10-10 08:39 | Cardiac Procedure Note-CS/ASA ---
Pre-Procedure Note Pre-Op Procedure Note Date of Available H&P: Oct 10, 2022 Date H&P Reviewed: Oct 10, 2022 Time H&P Reviewed: 08:39 History & Physical: H&P Reviewed, Patient Examed, No changes noted Pre-Operative Diagnosis: NSTMI Moderate Sedation PreProcedure Time 08:39 ASA Score 3 Airway Lungs Heart ASA score ASA 1: a normal healthy patient ASA 2: a patient with a mild systemic disease (mid diabetes, controlled hypertension, obesity ASA 3: a patient with a severe systemic disease that limits activity (angina, COPD, prior Myocardial infarction) ASA 4: a patient with an incapacitating disease that is a constant threat to life (CHF, renal failure) ASA 5: a moribund patient not expected to survive 24 hrs. (ruptured aneurysm) ASA 6: a declared brain- patient whose organs are being harvested. For emergent operations, add the letter E after the classification Mallampati Classification Grade 3 Sedation Plan Analgesia, Amnesia, Plan communicated to team members, Discussed options with patient/fam, Discussed risks with patient/fam The patient is an appropriate candidate to undergo the planned procedure, sedation, and anesthesia. The patient immediately re-assessed prior to indication. MARY DAMON MD Oct 10, 2022 08:39
[2022-10-10] MEDS ORDERED: ASPIRIN enteric coated 81MG TABLET PO SCH (09:00)
--- NOTE | 2022-10-10 09:53 | Cardiac Cath Report ---
Cardiac Cath Report Physician (s)/Spray Gunner (s) Physician MARY DAMON MD Pre-Procedure Diagnosis Pre-Procedure Diagnosis: NSTMI Post-Procedure Note Procedure Start Date: Oct 10, 2022 Name of Procedure: Left heart catheterization Attempt for intervention on the LAD Findings/Procedure Note PROCEDURE NOTE: 66-year-old gentleman admitted with non-ST elevation myocardial infarction, cardiac catheterization was advised. After explaining the procedure to the patient, all pros and cons were explained, all questions were answered. The patient signed the consent and then he was p laced in the cardiac catheterization laboratory. Groin was prepped in SL fashion local anesthesia was used. Sheath placed in the right radial artery, [place] catheter was advanced to the left ventricular cavity, pressure was measured, pullback LV to aorta was done, engage the right and left coronary system and angiogram was done. Patient received a total of 6000 units of heparin, I was unable to engage the left main with EBU guide, I used [place] left 3.5 guide. Attempted to cross the the chronic total occlusion of the LAD with BMW wire failed. I was able to cross it with a whisper extra-support wire. I attempted to advance 2.0 x 20 mm balloon over the wire, after multiple attempt I was unable to advance it I decided to use a ryann wire. I used a run-through extra floppy wire without success in crossing the lesion again. At that point due to the length of the lesion in the LAD and the collateral filling the distal LAD I decided to abort. At the end of the procedure the sheath was removed. Vascular band was used FINDINGS: Hemodynamics LV 108/20, end-diastolic pressure of 20 Aorta 105/70 mean of 81 ANATOMY: Left Main is free of obstructive disease Left Anterior Descending has diffuse ectasia, 40 to 50% ostial lesion, chronic total occlusion at the mid LAD reconstructed by collateral, failed attempt to intervention on that LAD. 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 Failed attempt for intervention Diffuse coronary ectasia in the left coronary system, nonobstructive disease Dominant right coronary artery giving collaterals to the left Elevated left ventricular end-diastolic pressure DISCUSSION AND RECOMMENDATION: Patient was started on aspirin and Plavix, we will continue maximizing medical therapy and I will arrange for tertiary center evaluation Anesthesia Type: Conscious Sedation Estimated blood loss (mL): 20 ml Contrast Amount: 78 ml Total Radiation Dose: 895 mGy Post-Procedure Diagnosis Post-operative diagnosis: Non-ST elevation myocardial infarction Coronary artery disease Hypertension Hyperlipidemia MARY DAMON MD Oct 10, 2022 09:53
[2022-10-10] MEDS ORDERED: CLOPIDOGREL 300 MG TABLET PO NR (10:00)
[2022-10-10] MEDS: SENNOSIDES 8.6 MG TABLET PO SCH ×2 (10:30→23:50)
[2022-10-10] MEDS: DOCUSATE SODIUM 100 MG CAPSULE PO SCH ×2 (10:30→23:50)
--- NOTE | 2022-10-10 10:50 | History & Physical ---
[facility] 10/10/22 1050: History of Present Illness History of Present Illness Reason for visit/HPI CC: Jaw and chest pain that radiates to the back HPI: 66 y/o male with a history of poorly controlled DMT2, HTN, HLD, obstructive sleep apnea - uses CPAP, and prostate cancer presented to the ED with chest pain that radiated to his jaw and back. EKG did not show ST elevation but troponin was elevated at 0.741, so he was admitted with an NSTEMI. He was started on heparin, morphine, aspirin, brilinta, and nitroglycerin while in the ED. CT of chest and abdomen showed some coronary calcifications and a left colon diverticulosis that was also seen on colonoscopy that patient had on 10/04/22. Echo showed grade 1 diastolic dysfunction in LV. He had left heart catheterization and intervention on LAD on 10/10/22. Before his operation he rep orted feeling fine with no N/V and no longer had chest pain or weakness. Bowel movements normal. Patient did mention some jaw pain but he said the TMJ pain had been there for a long time. Date of Admission Oct 09, 2022 at 21:45 Date Seen by a Provider: Oct 10, 2022 Time Seen by a Provider: 09:15 I consulted on this patient on 10/10/22 10:45 Attending Physician Kody Bender DO Admitting Physician Admitting Physician: Katey Fraser DO Attending Physician: Katey Fraser DO Consult Allergies and Home Medications Allergies Coded Allergies: No Known Drug Allergies (Verified , 09/22/22) Patient Home Medication List Home Medication List Reviewed: Yes Amlodipine Besylate (Amlodipine Besylate) 5 Mg Tablet, 5 MG PO HS, (Reported) Entered as Reported by: HERB BLANCO on 07/31/22 1840 Last Action: Reviewed Ascorbic Acid (Vitamin C) 1,000 Mg Tablet, 1,000 MG PO HS, (Reported) Entered as Reported by: TRUMAN PICHARDO on 10/10/22 1222 Last Action: Reviewed Aspirin (Aspirin EC) 325 Mg Tablet.dr, 325 MG PO HS, (Reported) Entered as Reported by: TRUMAN PICHARDO on 10/10/22 1222 Last Action: Reviewed Buspirone HCl (Buspirone HCl) 10 Mg Tablet, 20 MG PO HS, (Reported) Entered as Reported by: LUTHER RIVERA on 02/18/20 1446 Last Action: Reviewed Cetirizine HCl (Cetirizine HCl) 10 Mg Tablet, 10 MG PO HS, (Reported) Entered as Reported by: TRUMAN PICHARDO on 02/24/20 1042 Last Action: Reviewed Cholecalciferol (Vitamin D3) (Vitamin D3) 125 Mcg (5000 Unit) Tab.rapdis, 125 MCG PO HS, (Reported) Entered as Reported by: Deborah Ram on 09/22/22 1041 Last Action: Reviewed Ibuprofen (Ibuprofen) 800 Mg Tablet, 800 MG PO Q8H PRN for PAIN-MILD (1-4), (Reported) Entered as Reported by: TRUMAN PICHARDO on 10/10/22 1222 Last Action: Reviewed Insulin Glargine,Hum.rec.anlog (Lantus Solostar) 100 Unit/Ml (3 Ml) Insuln.pen, 120 UNITS SC HS, (Reported) Entered as Reported by: HERB BLANCO on 07/31/22 184 Last Action: Reviewed Insulin Regular, Human (Humulin R U-500 Kwikpen) 500/Ml (3) Insuln.pen, 10 UNITS SC 1200,1800 W/MEALS, (Reported) Entered as Reported by: HERB BLANCO on 07/31/221839 Last Action: Reviewed Lisinopril (Lisinopril) 40 Mg Tablet, 40 MG PO HS, (Reported) Entered as Reported by: LUTHER RIVERA on 11/15/17 1257 Last Action: Reviewed Magnesium Oxide (Magnesium) 400 Mg Magnesium Tablet, 400 MG PO HS, (Reported) Entered as Reported by: TRUMAN PICHARDO on 10/10/22 1222 Last Action: Reviewed Sertraline HCl (Sertraline HCl) 100 Mg Tablet, 100 MG PO HS, (Reported) Entered as Reported by: LUTHER RIVERA on 02/18/20 1446 Last Action: Reviewed Sertraline HCl (Sertraline HCl) 50 Mg Tablet, 50 MG PO HS, (Reported) Entered as Reported by: TRUMAN PICHARDO on 02/24/20 1042 Last Action: Reviewed Trazodone HCl (Trazodone HCl) 50 Mg Tablet, 50 MG PO HS, (Reported) Entered as Reported by: TRUMAN PICHARDO on 10/10/22 1222 Last Action: Reviewed Zinc Amino Acid Chelate (Zinc) 50 Mg Tablet, 50 MG PO HS, (Reported) Entered as Reported by: TRUMAN PICHARDO on 10/10/22 1222 Last Action: Reviewed Discontinued Medications Acetaminophen (Acetaminophen) 325 Mg Tablet, 650 MG PO Q6H PRN for PAIN-MILD (1- 4) Discontinued Reason: No Longer Taking Prescribed by: KODY BENDER on 02/25/20 0904 Last Action: Discontinued Aspirin (Aspirin) 325 Mg Tablet, 325 MG PO DAILY, (Reported) Discontinued Reason: No Longer Taking Entered as Reported by: Deborah Ram on 09/22/22 1041 Last Action: Discontinued Past Vbfxndk-Iwqvhy-Ldlkrk Hx Patient Social History Marrital Status: Employed/Student: employed Tobacco Use?: No Use of E-Cig and/or Vaping dev: No Substance use?: No Alcohol Use?: Yes Alcohol type: Hard Liquor Alcohol Frequency: Rarely Pt feels they are or have been: No Immunizations Up To Date Date of Influenza Vaccine: Nov 10, 2021 First/Initial COVID19 Vaccinat: UNSURE OF DATE Second COVID19 Vaccination Daniele: UNSURE OF DATE Tetanus Booster (TDap): More Than 5 Years Seasonal Allergies Seasonal Allergies: Yes (MILD) Current Status Advance Directives: No Communicates: Verbally Primary Language: Bangladeshi Preferred Spoken Language: Bangladeshi Sensory deficits: Vision impairment Implanted or Applied Medical D: CPAP Past Medical History Surgeries: Adenoidectomy, Tonsillectomy Sleep Apnea Currently Using CPAP: Yes Currently Using BIPAP: No High Cholesterol, Hypertension Sexually Transmitted Disease: No HIV/AIDS: No Prostate Problems Irritable Bowel Diabetes, Insulin dep Tonsilitis Loss of Vision: Denies Hearing Impairment: Denies Prostate Did You Recieve Any Treatments: Yes What Type of Treatment Did You: Radiation Anxiety, Depression Blood Disorders: No Adverse Reaction/Blood Tranf: No Family Medical History Heart Disease Review of Systems Constitutional: no symptoms reported; No chills, No diaphoresis, No dizziness, No fever, No malaise, No weakness Respiratory: cough (says it is allergies ); No dyspnea on exertion, No hemoptysis, No phlegm, No short of breath Cardiovascular: see HPI Gastrointestinal: No abdominal pain, No constipation, No diarrhea, No heartburn Genitourinary: no symptoms reported; No dysuria Skin: no symptoms reported Physical Exam Vital Signs Vital Signs - First Documented 10/09/22 10/09/22 19:25 21:59 Pulse 73 Resp 20 B/P (MAP) 131/81 (98) Pulse Ox 97 O2 Delivery Room Air O2 Flow Rate 2.00 Capillary Refill : Less Than 3 Seconds Height, Weight, BMI Height: 5'9.00" Weight: 240lbs. 0.0oz. [id number]; 34.07 BMI Method:Stated General Appearance: No Apparent Distress, Obese HEENT: Normal ENT Inspection, Pharynx Normal Neck: Normal Inspection, Non Tender, Supple Respiratory: Chest Non Tender, Lungs Clear, Normal Breath Sounds, No Accessory Muscle Use, No Respiratory Distress Cardiovascular: Regular Rate, Rhythm, No Edema, No JVD, No Murmur, Normal Peripheral Pulses Gastrointestinal: Normal Bowel Sounds, No Organomegaly, No Pulsatile Mass, Non Tender, Soft Assessment/Plan Assessment and Plan Assessment: NSTEMI poorly controlled DMT2 obesity HTN HLD obstructive sleep apnea prostate cancer Plan: Continue insulin continue clopidogrel ambulate when able Admission Diagnosis Admission Status: Observation Clinical Quality Measures AMI/AHF: ASA po Prior to arrival: Yes KATEY FRASER DO 10/10/22 2019: History of Present Illness History of Present Illness Reason for visit/HPI Chief complaint: NSTEMI HPI: this is a 66-year-old male who has a past medical history of diabetes insulin dependent hypertension with hyperlipidemia VIET compliant with CPAP who presented to the ER with chest pain and elevated troponin. He just completed cardiac catheterization showing significant heart disease possibly in need of high risk intervention at higher level of care. Allergies and Home Medications Allergies Coded Allergies: No Known Drug Allergies (Verified , 09/22/22) Patient Home Medication List Amlodipine Besylate (Amlodipine Besylate) 5 Mg Tablet, 5 MG PO HS, (Reported) Entered as Reported by: HERB BLANCO on 07/31/22 1840 Last Action: Reviewed Ascorbic Acid (Vitamin C) 1,000 Mg Tablet, 1,000 MG PO HS, (Reported) Entered as Reported by: TRUMAN PICHARDO on 10/10/22 1222 Last Action: Reviewed Aspirin (Aspirin EC) 325 Mg Tablet.dr, 325 MG PO HS, (Reported) Entered as Reported by: TRUMAN PICHARDO on 10/10/22 1222 Last Action: Reviewed Buspirone HCl (Buspirone HCl) 10 Mg Tablet, 20 MG PO HS, (Reported) Entered as Reported by: LUTHER RIVERA on 02/18/20 1446 Last Action: Reviewed Cetirizine HCl (Cetirizine HCl) 10 Mg Tablet, 10 MG PO HS, (Reported) Entered as Reported by: TRUMAN PICHARDO on 02/24/20 1042 Last Action: Reviewed Cholecalciferol (Vitamin D3) (Vitamin D3) 125 Mcg (5000 Unit) Tab.rapdis, 125 MCG PO HS, (Reported) Entered as Reported by: Deborah Ram on 09/22/22 1041 Last Action: Reviewed Ibuprofen (Ibuprofen) 800 Mg Tablet, 800 MG PO Q8H PRN for PAIN-MILD (1-4), (Reported) Entered as Reported by: TRUMAN PICHARDO on 10/10/22 122 Last Action: Reviewed Insulin Glargine,Hum.rec.anlog (Lantus Solostar) 100 Unit/Ml (3 Ml) Insuln.pen, 120 UNITS SC HS, (Reported) Entered as Reported by: HERB BLANCO on 07/31/22 184 Last Action: Reviewed Insulin Regular, Human (Humulin R U-500 Kwikpen) 500/Ml (3) Insuln.pen, 10 UNITS SC 1200,1800 W/MEALS, (Reported) Entered as Reported by: HERB BLANCO on 07/31/22 184 Last Action: Reviewed Lisinopril (Lisinopril) 40 Mg Tablet, 40 MG PO HS, (Reported) Entered as Reported by: LUTHER RIVERA on 11/15/17 1257 Last Action: Reviewed Magnesium Oxide (Magnesium) 400 Mg Magnesium Tablet, 400 MG PO HS, (Reported) Entered as Reported by: TRUMAN PICHARDO on 10/10/22 1222 Last Action: Reviewed Sertraline HCl (Sertraline HCl) 100 Mg Tablet, 100 MG PO HS, (Reported) Entered as Reported by: LUTHER RIVERA on 02/18/20 1446 Last Action: Reviewed Sertraline HCl (Sertraline HCl) 50 Mg Tablet, 50 MG PO HS, (Reported) Entered as Reported by: TRUMAN PICHARDO on 02/24/20 1042 Last Action: Reviewed Trazodone HCl (Trazodone HCl) 50 Mg Tablet, 50 MG PO HS, (Reported) Entered as Reported by: TRUMAN PICHARDO on 10/10/22 1222 Last Action: Reviewed Zinc Amino Acid Chelate (Zinc) 50 Mg Tablet, 50 MG PO HS, (Reported) Entered as Reported by: TRUMAN PICHARDO on 10/10/22 1222 Last Action: Reviewed Discontinued Medications Acetaminophen (Acetaminophen) 325 Mg Tablet, 650 MG PO Q6H PRN for PAIN-MILD (1- 4) Discontinued Reason: No Longer Taking Prescribed by: KODY BENDER on 02/25/20 0904 Last Action: Discontinued Aspirin (Aspirin) 325 Mg Tablet, 325 MG PO DAILY, (Reported) Discontinued Reason: No Longer Taking Entered as Reported by: Deborah Ram on 09/22/22 1041 Last Action: Discontinued Past Wwelecu-Rdypjz-Fmoujz Hx Patient Social History Marrital Status: Employed/Student: retired Smoking Status: Former Smoker Past Medical History Sleep Apnea Currently Using CPAP: Yes High Cholesterol, Hypertension Diabetes, Insulin dep Review of Systems Constitutional: see HPI Cardiovascular: chest pain Physical Exam General Appearance: No Apparent Distress, WD/WN, Chronically ill, Obese Respiratory: Lungs Clear, Normal Breath Sounds Cardiovascular: Regular Rate, Rhythm Neurologic/Psychiatric: Alert, Oriented x3 Assessment/Plan Assessment and Plan NSTEMI Poorly controlled diabetes hemoglobin A1c 9.1 Insulin Resistance Obesity HTN HLP VIET on CPAP Admission Diagnosis Admission Status: Inpatient Order (span 2 midnights) Reason for Inpatient Admission: NSTEMI Supervisory-Addendum Brief Verification & Attestation Participated in pt care: history, MDM, physical Personally performed: exam, history, MDM, supervision of care Care discussed with: Medical Student Procedures: n/a Results interpretation: Verified all documentation Verification and Attestation of Medical Student E/M Service A medical student performed and documented this service in my presence. I reviewed and verified all information documented by the medical student and made modifications to such information, when appropriate. I personally performed the physical exam and medical decision making. Katey Fraser Oct 10, 2022,20:15 [place] Oct 10, 2022 10:50 KATEY FRASER DO Oct 10, 2022 20:19
[2022-10-10] MEDS: TICAGRELOR 90 MG TABLET (BRILINTA) PO SCH ×2 (11:54→22:01)
[2022-10-10] MEDS ORDERED: ZINC50TA51 PO (12:22)
[2022-10-10] MEDS ORDERED: IBUP-1780 PO (12:22)
[2022-10-10] MEDS ORDERED: TRZ50T PO (12:22)
[2022-10-10] MEDS ORDERED: MAGN400T39 PO (12:22)
[2022-10-10] MEDS ORDERED: ASPI325T32 PO (12:22)
[2022-10-10] MEDS ORDERED: ASCO100024 PO (12:22)
[2022-10-10] MEDS ORDERED: POTASSIUM CHLORIDE 20 MEQ TABLET PO NR (17:45)
[2022-10-10] MEDS ORDERED: SERTRALINE 50 MG TABLET PO SCH (21:00)
[2022-10-10] MEDS ORDERED: SERTRALINE 100 MG TABLET PO SCH (21:00)
[2022-10-10] MEDS ORDERED: traZODone 50 MG (DESYREL) TAB PO SCH (21:00)
[2022-10-10] MEDS ORDERED: amLODIPine 5 MG TABLET PO SCH (21:00)
[2022-10-10] MEDS ORDERED: busPIRone 10 MG TABLET PO SCH (21:00)
[2022-10-10] MEDS ORDERED: LORATADINE 10 MG TABLET PO SCH (21:22)
[2022-10-10] MEDS ORDERED: VITAMIN D3 125 MCG (5,000 UNITS) TABLET PO SCH (21:26)
[2022-10-10] MEDS ORDERED: MAGNESIUM OXIDE 400 MG TABLET PO SCH (21:27)
[2022-10-10] MEDS ORDERED: ZINC SULFATE 220 MG CAPSULE PO SCH (21:28)
[2022-10-10] MEDS: inSUlin DETERMIR 1 UNIT/0.01 ML (CHARGE PER UNIT) SQ SCH (21:59)
[2022-10-11 04:44] LABS: BASOPHILS % (AUTO) 0 % (0-10); EOSINOPHILS % (AUTO) 1 % (0-10); HEMATOCRIT 34 % (40-54); HEMOGLOBIN 11.5 g/dL (13.3-17.7); LYMPHOCYTES # (AUTO) 0.8 10^3/uL (1.0-4.0); LYMPHOCYTES % (AUTO) 19 % (12-44); MEAN CORPUSCULAR HEMOGLOBIN 32 pg (25-34); MEAN CORPUSCULAR HGB CONC 34 g/dL (32-36); MEAN CORPUSCULAR VOLUME 94 fL (80-99); MEAN PLATELET VOLUME 10.3 fL (9.0-12.2); MONOCYTES # (AUTO) 0.3 10^3/uL (0.0-1.0); MONOCYTES % (AUTO) 7 % (0-12); NEUTROPHILS # (AUTO) 3.1 10^3/uL (1.8-7.8); NEUTROPHILS % (AUTO) 72 % (42-75); PLATELET COUNT 202 10^3/uL (130-400); WHITE BLOOD COUNT 4.3 10^3/uL (4.3-11.0)
[2022-10-11 05:01] LABS: ALBUMIN 3.5 GM/DL (3.2-4.5); POTASSIUM 3.9 MMOL/L (3.6-5.0)
[2022-10-11 05:02] LABS: CALCIUM 8.3 MG/DL (8.5-10.1)
[2022-10-11 05:04] LABS: TOTAL PROTEIN 5.8 GM/DL (6.4-8.2)
[2022-10-11 05:05] LABS: BILIRUBIN,TOTAL 1.1 MG/DL (0.1-1.0)
[2022-10-11 05:07] LABS: CREATININE SERUM 0.85 MG/DL (0.60-1.30); PHOSPHORUS 2.9 MG/DL (2.3-4.7)
[2022-10-11 05:10] LABS: MAGNESIUM 1.9 MG/DL (1.6-2.4)
[2022-10-11] MEDS: POTASSIUM CL 10MEQ/50ML IVPB 50 ML IV SCH (05:47)
[2022-10-11] MEDS: MAGNESIUM 1 GM/100 ML IVPB 100 ML IV SCH ×3 (05:48→07:06)
[2022-10-11] MEDS: POTASSIUM CHLORIDE 20 MEQ TABLET PO SCH (05:48)
[2022-10-11] MEDS: NS IV 1000 ML 1,000 ML IV SCH ×2 (05:59)
[2022-10-11] MEDS: inSUlin ASPART 1 UNIT/0.01 ML (PER UNIT) SC SCH (06:03)
[2022-10-11] MEDS ORDERED: POTASSIUM CHLORIDE 20 MEQ TABLET PO ONE (08:00)
[2022-10-11] MEDS: TICAGRELOR 90 MG TABLET (BRILINTA) PO SCH (08:06)
[2022-10-11] MEDS: inSUlin DETERMIR 1 UNIT/0.01 ML (CHARGE PER UNIT) SQ SCH (08:06)
--- NOTE | 2022-10-11 08:10 | Cardiology Progress Note ---
Subjective Date Seen by Provider: Oct 11, 2022 Time Seen by Provider: 08:08 Subjective/Events-last exam Patient was seen at bedside, sitting comfortably, feeling better. Review of Systems General: No Chills, No Night Sweats, No Fatigue, No Malaise, No Appetite, No Other HEENT: No Head Aches, No Visual Changes, No Eye Pain, No Ear Pain, No Dysphasia, No Sinus Congestion, No Post Nasal Drip, No Sore Throat, No Other Pulmonary: No Dyspnea, No Cough, No Pleuritic Chest Pain, No Other Cardiovascular: No: Chest Pain, Palpitations, Orthopnea, Paroxysmal Noc. Dyspnea, Edema, Lt Headedness, Other Focused Exam Lactate Level 10/09/22 22:42: Lactic Acid Level 1.03 Objective-Cardiology Exam Last Set of Vital Signs Vital Signs 10/09/22 10/11/22 10/11/22 21:59 07:00 07:28 Pulse 49 Resp 15 B/P (MAP) 126/64 (84) Pulse Ox 96 O2 Delivery Room Air O2 Flow Rate 2.00 I&O Intake and Output 10/11/22 00:00 Intake Total 2200 ml Output Total 2500 ml Balance -300 ml Intake Oral 1700 ml IV Total 500 ml Output Urine Total 2500 ml General: Alert, Oriented X3, Cooperative HEENT: Atraumatic, PERRLA Neck: Supple, No JVD, No Thyromegaly Lungs: Clear to Auscultation, Normal Air Movement Heart: Regular Rate, Normal S1, Normal S2, No Murmurs Abdomen: Normal Bowel Sounds, Soft, No Tenderness, No Hepatosplenomegaly, No Masses Extremities: No Clubbing, No Cyanosis, No Edema, Normal Pulses, No Tenderness/Swelling Skin: No Rashes, No Breakdown, No Significant Lesion Neuro: Normal Gait, Normal Speech, Strength at 5/5 X4 Ext, Normal Tone, Sensa tion Intact Psych/Mental Status: Mental Status NL, Mood NL Results Lab Laboratory Tests 10/11/22 03:38 A/P-Cardiology Admission Diagnosis Non-ST elevation myocardial infarction Chest pain Hypertension Hyperlipidemia Assessment/Plan Non-ST elevation myocardial infarction, chest pain Reporting improvement. Continue to monitor Coronary artery disease, chronic total occlusion of the LAD receiving collaterals from the right coronary artery Attempt for intervention on the LAD failed. I forwarded the images to Kunal and discussed it with Dr. Aguilar Recommended conservative management. We will consider intervention on the chronic total occlusion if patient continues to be symptomatic Continue on aspirin and Brilinta Cannot tolerate beta-tanika due to bradycardia Hypertension, monitor blood pressure Hyperlipidemia, started on Lipitor 80 mg daily Diabetes mellitus, followed and managed by primary care physician Obesity, BMI 34, discussed weight loss Strong family history of heart disease MARY DAMON MD Oct 11, 2022 08:10
[2022-10-11] MEDS ORDERED: ASPI-1238 PO (08:12)
[2022-10-11] MEDS ORDERED: EMPA10TA PO (08:12)
[2022-10-11] MEDS ORDERED: TICA90TA PO (08:12)
--- NOTE | 2022-10-11 08:51 | Discharge Summary ---
Diagnosis/Chief Complaint Date of Admission Oct 09, 2022 at 21:45 Date of Discharge Discharge Date: Oct 11, 2022 Discharge Diagnosis NSTEMI Severe CAD DM insulin HTN HLP VIET on CPAP Reason Hospital Visit Chief complaint: NSTEMI HPI: this is a 66-year-old male who has a past medical history of diabetes insulin dependent hypertension with hyperlipidemia VIET compliant with CPAP who presented to the ER with chest pain and elevated troponin. He just completed cardiac catheterization showing significant heart disease possibly in need of high risk intervention at higher level of care. Discharge Summary Discharge Physical Examination Allergies: Coded Allergies: No Known Drug Allergies (Verified , 09/22/22) Vitals & I&Os Vital Signs Date Time Temp Pulse Resp B/P (MAP) Pulse Ox O2 Delivery O2 Flow Rate FiO2 10/11/22 09:40 36.3 57 17 99/64 96 Room Air 10/09/22 21:59 2.00 General Appearance: Alert, Oriented X3, Cooperative Respiratory: Clear to Auscultation Psych/Mental Status: Mental Status NL Hospital Course Was the Problem List Reviewed?: Yes Hospital course: 66 y/o male with a history of poorly controlled DMT2, HTN, HLD, prostate cancer, and obstructive sleep apnea presented to the ED with chest pain that radiates to the back on on 10/09/22. ECG on admit date showed no ST elevations, but labs showed troponin of 0.741 and rising. Patient was started on heparin, morphine, aspirin, brilanta, and nitroglycerin. CT showed some coronary calcifications, to note, CT of the abdomen showed left colon diverticulosis which was also seen on colonoscopy the patient had on 10/04/22. Echo showed grade 1 diastolic dysfunction on left ventricle. He underwent left heart catheterization on 10/10/22, there was a failed attempt at intervention because of total occlusion of the mid LAD but there was collateral filling in the distal LAD by the RCA. Patient felt fine after the procedure and no recurrence or chest pain or any weakness. Patient was able to ambulate without any symptoms, he was discharged on 10/11/22. Labs (last 24 hrs) Laboratory Tests 10/09/22 19:36: White Blood Count 8.2, Red Blood Count 4.30, Hemoglobin 14.2, Hematocrit 41, Mean Corpuscular Volume 95, Mean Corpuscular Hemoglobin 33, Mean Corpuscular Hemoglobin Concent 35, Red Cell Distribution Width 12.1, Platelet Count 276, Mean Platelet Volume 10.0, Immature Granulocyte % (Auto) 1, Neutrophils (%) (Auto) 80H, Lymphocytes (%) (Auto) 13, Monocytes (%) (Auto) 6, Eosinophils (%) (Auto) 1, Basophils (%) (Auto) 0, Neutrophils # (Auto) 6.6, Lymphocytes # (Auto) 1.1, Monocytes # (Auto) 0.5, Eosinophils # (Auto) 0.0, Basophils # (Auto) 0.0, Immature Granulocyte # (Auto) 0.1, Prothrombin Time 13.5, INR Comment 1.0, Activated Partial Thromboplast Time 28, D-Dimer 0.73H, Sodium Level 138, Potassium Level 4.2, Chloride Level 107, Carbon Dioxide Level 17L, Anion Gap 14, Blood Urea Nitrogen 21H, Creatinine 1.15, Estimat Glomerular Filtration Rate 71, BUN/Creatinine Ratio 18, Glucose Level 248H, Calcium Level 9.2, Corrected Genaro cium 9.0, Magnesium Level 1.7, Total Bilirubin 0.8, Aspartate Amino Transf (AST/SGOT) 30, Alanine Aminotransferase (ALT/SGPT) 31, Alkaline Phosphatase 129, Total Creatine Kinase 243H, Creatine Kinase MB 6.5, Myoglobin 93.9H, Troponin I 0.741*H, B-Type Natriuretic Peptide 40.9, Total Protein 7.5, Albumin 4.3, Amylase Level 32, Lipase 56 10/09/22 22:42: Troponin I 2.096*H, Lactic Acid Level 1.03 10/10/22 01:10: Glucometer 215H 10/10/22 02:43: White Blood Count 8.6, Red Blood Count 4.00L, Hemoglobin 13.1L, Hematocrit 37L, Mean Corpuscular Volume 93, Mean Corpuscular Hemoglobin 33, Mean Corpuscular Hemoglobin Concent 35, Red Cell Distribution Width 12.0, Platelet Count 221, Mean Platelet Volume 9.9, Immature Granulocyte % (Auto) 0, Neutrophils (%) (Auto) 76H, Lymphocytes (%) (Auto) 18, Monocytes (%) (Auto) 4, Eosinophils (%) (Auto) 1, Basophils (%) (Auto) 0, Neutrophils # (Auto) 6.6, Lymphocytes # (Auto) 1.6, Monocytes # (Auto) 0.4, Eosinophils # (Auto) 0.1, Basophils # (Auto) 0.0, Immature Granulocyte # (Auto) 0.0, Activated Partial Thromboplast Time 74H, So dium Level 141, Potassium Level 3.5L, Chloride Level 107, Carbon Dioxide Level 21, Anion Gap 13, Blood Urea Nitrogen 19H, Creatinine 1.06, Estimat Glomerular Filtration Rate 78, BUN/Creatinine Ratio 18, Glucose Level 233H, Calcium Level 9.0, Corrected Calcium 9.2, Magnesium Level 1.5L, Total Bilirubin 0.7, Aspartate Amino Transf (AST/SGOT) 35H, Alanine Aminotransferase (ALT/SGPT) 26, Alkaline Phosphatase 123, Total Protein 6.6, Albumin 3.8, Mean Blood Glucose 214H, Hemoglobin A1c 9.1H, Phosphorus Level 3.0, Triglycerides Level 478H, Cholesterol Level 152, LDL Cholesterol Direct 94, VLDL Cholesterol 96H, HDL Cholesterol 24L 10/10/22 11:06: Glucometer 185H 10/10/22 15:40: Glucometer 225H 10/10/22 20:54: Glucometer 210H 10/11/22 03:38: White Blood Count 4.3, Red Blood Count 3.57L, Hemoglobin 11.5L, Hematocrit 34L, Mean Corpuscular Volume 94, Mean Corpuscular Hemoglobin 32, Mean Corpuscular Hemoglobin Concent 34, Red Cell Distribution Width 12.1, Platelet Count 202, Mean Platelet Volume 10.3, Immature Granulocyte % (Auto) 1, Neutrophils (%) (Auto) 72, Lymphocytes (%) (Auto) 19, Monocytes (%) (Auto) 7, Eosinophils (%) (Auto) 1, Basophils (%) (Auto) 0, Neutrophils # (Auto) 3.1, Lymphocytes # (Auto) 0.8L, Monocytes # (Auto) 0.3, Eosinophils # (Auto) 0.0, Basophils # (Auto) 0.0, Immature Granulocyte # (Auto) 0.0, Sodium Level 140, Potassium Level 3.9, Chloride Level 111H, Carbon Dioxide Level 22, Anion Gap 7, Blood Urea Nitrogen 11, Creatinine 0.85, Estimat Glomerular Filtration Rate 96, BUN/Creatinine Ratio 13, Glucose Level 121H, Calcium Level 8.3L, Corrected Calcium 8.7, Phosphorus Level 2.9, Magnesium Level 1.9, Total Bilirubin 1.1H, Aspartate Amino Transf (AST/SGOT) 25, Alanine Aminotransferase (ALT/SGPT) 25, Alkaline Phosphatase 93, Total Protein 5.8L, Albumin 3.5 10/11/22 05:56: Glucometer 124H Microbiology 10/09/22 MRSA Screen - Final, Complete MRSA not isolated Pending Labs Microbiology Date/Time Source Procedure Growth Status 10/09/22 22:14 Nasal MRSA Screen - Final MRSA not isolated Complete Laboratory Tests 10/09/22 19:36: White Blood Count 8.2, Red Blood Count 4.30, Hemoglobin 14.2, Hematocrit 41, Mean Corpuscular Volume 95, Mean Corpuscular Hemoglobin 33, Mean Corpuscular Hemoglobin Concent 35, Red Cell Distribution Width 12.1, Platelet Count 276, Donna n Platelet Volume 10.0, Immature Granulocyte % (Auto) 1, Neutrophils (%) (Auto) 80, Lymphocytes (%) (Auto) 13, Monocytes (%) (Auto) 6, Eosinophils (%) (Auto) 1, Basophils (%) (Auto) 0, Neutrophils # (Auto) 6.6, Lymphocytes # (Auto) 1.1, Monocytes # (Auto) 0.5, Eosinophils # (Auto) 0.0, Basophils # (Auto) 0.0, Immature Granulocyte # (Auto) 0.1, Prothrombin Time 13.5, INR Comment 1.0, Activated Partial Thromboplast Time 28, D-Dimer 0.73, Sodium Level 138, Potassium Level 4.2, Chloride Level 107, Carbon Dioxide Level 17, Anion Gap 14, Blood Urea Nitrogen 21, Creatinine 1.15, Estimat Glomerular Filtration Rate 71, BUN/Creatinine Ratio 18, Glucose Level 248, Calcium Level 9.2, Corrected Calcium 9.0, Magnesium Level 1.7, Total Bilirubin 0.8, Aspartate Amino Transf (AST/SGOT) 30, Alanine Aminotransferase (ALT/SGPT) 31, Alkaline Phosphatase 129, Total Creatine Kinase 243, Creatine Kinase MB 6.5, Myoglobin 93.9, Troponin I 0.741, B-Type Natriuretic Peptide 40.9, Total Protein 7.5, Albumin 4.3, Amylase Level 32, Lipase 56 10/09/22 22:42: Troponin I 2.096, Lactic Acid Level 1.03 10/10/22 01:10: Glucometer 215 10/10/22 02:43: White Blood Count 8.6, Red Blood Count 4.00, Hemoglobin 13.1, Hematocrit 37, Mean Corpuscular Volume 93, Mean Corpuscular Hemoglobin 33, Mean Corpuscular Hemoglobin Concent 35, Red Cell Distribution Width 12.0, Platelet Count 221, Mean Platelet Volume 9.9, Immature Granulocyte % (Auto) 0, Neutrophils (%) (Auto) 76, Lymphocytes (%) (Auto) 18, Monocytes (%) (Auto) 4, Eosinophils (%) (Auto) 1, Basophils (%) (Auto) 0, Neutrophils # (Auto) 6.6, Lymphocytes # (Auto) 1.6, Monocytes # (Auto) 0.4, Eosinophils # (Auto) 0.1, Basophils # (Auto) 0.0, Immature Granulocyte # (Auto) 0.0, Activated Partial Thromboplast Time 74, Sodium Level 141, Potassium Level 3.5, Chloride Level 107, Carbon Dioxide Level 21, Anion Gap 13, Blood Urea Nitrogen 19, Creatinine 1.06, Estimat Glomerular Filtration Rate 78, BUN/Creatinine Ratio 18, Glucose Level 233, Calcium Level 9.0, Corrected Calcium 9.2, Magnesium Level 1.5, Total Bilirubin 0.7, Aspartate Amino Transf (AST/SGOT) 35, Alanine Aminotransferase (ALT/SGPT) 26, Alkaline Phosphatase 123, Total Protein 6.6, Albumin 3.8, Mean Blood Glucose 214, Hemoglobin A1c 9.1, Phosphorus Level 3.0, Triglycerides Level 478, Cholesterol Level 152, LDL Cholesterol Direct 94, VLDL Cholesterol 96, HDL Cholesterol 24 10/10/22 11:06: Glucometer 185 10/10/22 15:40: Glucometer 225 10/10/22 20:54: Glucometer 210 10/11/22 03:38: White Blood Count 4.3, Red Blood Count 3.57, Hemoglobin 11.5, Hematocrit 34, Mean Corpuscular Volume 94, Mean Corpuscular Hemoglobin 32, Mean Corpuscular Hemoglobin Concent 34, Red Cell Distribution Width 12.1, Platelet Count 202, Mean Platelet Volume 10.3, Immature Granulocyte % (Auto) 1, Neutrophils (%) (Auto) 72, Lymphocytes (%) (Auto) 19, Monocytes (%) (Auto) 7, Eosinophils (%) (Auto) 1, Basophils (%) (Auto) 0, Neutrophils # (Auto) 3.1, Lymphocytes # (Auto) 0.8, Monocytes # (Auto) 0.3, Eosinophils # (Auto) 0.0, Basophils # (Auto) 0.0, Immature Granulocyte # (Auto) 0.0, Sodium Level 140, Potassium Level 3.9, Chloride Level 111, Carbon Dioxide Level 22, Anion Gap 7, Blood Urea Nitrogen 11, Creatinine 0.85, Estimat Glomerular Filtration Rate 96, BUN/Creatinine Ratio 13, Glucose Level 121, Calcium Level 8.3, Corrected Calcium 8.7, Phosphorus Level 2.9, Magnesium Level 1.9, Total Bilirubin 1.1, Aspartate Amino Transf (AST/SGOT) 25, Alanine Aminotransferase (ALT/SGPT) 25, Alkaline Phosphatase 93, Total Protein 5.8, Albumin 3.5 10/11/22 05:56: Glucometer 124 Discharge Home Medications: Active Scripts Active Jardiance (Empagliflozin) 10 Mg Tablet 10 Mg PO DAILY Aspirin EC (Aspirin) 81 Mg Tablet.dr 81 Mg PO DAILY Brilinta (Ticagrelor) 90 Mg Tablet 90 Mg PO BID Reported Zinc (Zinc Amino Acid Chelate) 50 Mg Tablet 50 Mg PO HS Magnesium (Magnesium Oxide) 400 Mg Magnesium Tablet 400 Mg PO HS Vitamin C (Ascorbic Acid) 1,000 Mg Tablet 1,000 Mg PO HS Trazodone HCl 50 Mg Tablet 50 Mg PO HS Vitamin D3 (Cholecalciferol (Vitamin D3)) 125 Mcg (5000 Unit) Tab.rapdis 125 Mcg PO HS Amlodipine Besylate 5 Mg Tablet 5 Mg PO HS Lantus Solostar (Insulin Glargine,Hum.rec.anlog) 100 Unit/Ml (3 Ml) Insuln.pen 120 Units SC HS Humulin R U-500 Kwikpen (Insulin Regular, Human) 500/Ml (3) Insuln.pen 10 Units SC 1200,1800 W/MEALS Cetirizine HCl 10 Mg Tablet 10 Mg PO HS Sertraline HCl 50 Mg Tablet 50 Mg PO HS TAKES 100MG +50MG TOGETHER TO EQUAL 150MG Sertraline HCl 100 Mg Tablet 100 Mg PO HS TAKES 100MG +50MG TOGETHER TO EQUAL 150MG Buspirone HCl 10 Mg Tablet 20 Mg PO HS TAKES 2 (10MG) TABS Lisinopril 40 Mg Tablet 40 Mg PO HS Instructions to patient/family Please see electronic discharge instructions given to patient. Clinical Quality Measures AMI/AHF: ASA po Prior to arrival: Yes KATHIE FRASER DO Oct 11, 2022 08:51
[2022-10-11] MEDS: DOCUSATE SODIUM 100 MG CAPSULE PO SCH (09:00)
[2022-10-11] MEDS ORDERED: EMPAGLIFLOZIN 10 MG TABLET PO SCH (09:00)
[2022-10-11] MEDS ORDERED: CLOPIDOGREL 75 MG TABLET PO SCH (09:00)
[2022-10-11] MEDS ORDERED: ASPIRIN enteric coated 81MG TABLET PO SCH (09:00)
[2022-10-11] MEDS: SENNOSIDES 8.6 MG TABLET PO SCH (09:00)
--- NOTE | 2022-10-11 09:10 | Tele-ICU Progress Note ---
Subjective Date Seen by a Provider: Oct 11, 2022 Time Seen by a Provider: 09:08 Subjective/Events-last exam (Tele-ICU Physician , consultation as per request of PCP Service provided via interactive audio and video telecommunications E-CARE system to a patient admitted to ICU bed in [facility]. Available chart/ vitals / labs / Images reviewed H&P is from ER notes Patient's information available about PMH, Shx, Fhx allergy reviewed inEMR. ROS as per chart and RN report Now in ICU, hemodynamically stable Video assessment done using teleICU camera, rest of exam as per RN Discussed with RN. Not having CP or SOB Hx of HTN, HLD, DM, has NSTEMI, meds include DPT, went to CCL, total occlusion LAD, unable to open with PCI, Sepsis Event Evaluation Height, Weight, BMI Height: 5'9.00" Weight: 240lbs. 0.0oz. [id number]; 34.65 BMI Method:Stated Focused Exam Lactate Level 10/09/22 22:42: Lactic Acid Level 1.03 Exam Exam Patient acknowledged, consented, and participated in this virtual visit which was conducted using real time audio/video Vital Signs Date Time Temp Pulse Resp B/P (MAP) Pulse Ox O2 Delivery O2 Flow Rate FiO2 10/11/22 08:00 36.3 10/11/22 08:00 57 17 99/64 (76) 96 Room Air 10/11/22 08:00 Room Air 10/11/22 07:28 49 10/11/22 07:00 55 15 126/64 (84) 96 Room Air 10/11/22 06:00 58 13 114/71 (85) 97 Room Air 10/11/22 05:00 52 12 116/66 (83) Room Air 10/11/22 04:00 36.1 10/11/22 04:00 60 19 114/60 (87) Room Air 10/11/22 03:36 Room Air 10/11/22 03:00 56 17 113/57 (80) 97 Room Air 10/11/22 02:30 49 93/59 (80) 95 Room Air 10/11/22 02:08 51 109/57 (76) 96 Room Air 10/11/22 02:00 51 20 79/46 (63) 97 Room Air 10/11/22 01:34 53 23 93/73 (87) 95 Room Air 10/11/22 01:30 52 19 86/43 (65) 94 Room Air 10/11/22 01:00 54 20 98/41 (67) 96 Room Air 10/11/22 01:00 54 10/11/22 00:20 36.3 Room Air 10/11/22 00:00 54 18 83/43 (58) 93 Room Air 10/10/22 23:57 Room Air 10/10/22 23:00 60 22 128/68 (94) 96 Room Air 10/10/22 22:00 62 15 120/54 (84) 98 Room Air 10/10/22 21:00 58 14 122/61 (83) 96 Room Air 10/10/22 20:00 60 8 113/65 (83) 97 Room Air 10/10/22 19:40 36.5 10/10/22 19:37 Room Air 10/10/22 19:19 36.2 59 15 127/56 (79) 94 Room Air 10/10/22 19:00 61 10/10/22 18:00 63 12 127/60 (82) 95 Room Air 10/10/22 17:00 56 19 95/52 (66) 94 Room Air 10/10/22 16:05 36.4 10/10/22 16:00 60 17 112/84 (93) 96 Room Air 10/10/22 16:00 96 Room Air 10/10/22 15:00 59 12 112/73 (86) 97 Room Air 10/10/22 14:00 57 8 105/47 (66) 97 Room Air 10/10/22 13:00 56 18 100/39 (59) 93 Room Air 10/10/22 12:30 60 17 103/40 (61) 96 Room Air 10/10/22 12:27 57 10/10/22 12:00 59 12 116/54 (74) 96 Room Air 10/10/22 12:00 98 Room Air 10/10/22 11:30 61 11 127/69 (88) 97 Room Air 10/10/22 11:00 57 17 107/60 (76) 96 Room Air 10/10/22 10:45 58 12 111/50 (70) 96 Room Air 10/10/22 10:30 56 11 118/88 (98) 98 Room Air 10/10/22 10:15 53 14 107/55 (72) 93 Room Air 10/10/22 10:15 53 10/10/22 10:00 55 13 111/65 (80) 94 Room Air I & O 10/11/22 07:00 Intake Total 2000 ml Output Total 2350 ml Balance -350 ml Height & Weight Height: 5'9.00" Weight: 240lbs. 0.0oz. [id number]; 34.65 BMI Method:Stated General Appearance: No Apparent Distress, WD/WN, Chronically ill, Obese HEENT: Normal ENT Inspection, Pharynx Normal Neck: Normal Inspection, Non Tender, Supple Respiratory: Lungs Clear, Normal Breath Sounds Cardiovascular: Regular Rate, Rhythm Capillary Refill: Less Than 3 Seconds Gastrointestinal: normal bowel sounds, non tender Extremity: Normal Capillary Refill, Normal Inspection, Normal Range of Motion, Non Tender, No Calf Tenderness, No Pedal Edema Neurologic/Psychiatric: Alert, Oriented x3 Skin: Normal Color, Warm/Dry Lymphatic: No Adenopathy Results Lab Laboratory Tests 10/09/22 19:36 10/10/22 02:43 10/11/22 03:38 Assessment/Plan Assessment/Plan NSTEMI, unable to open mid LAD stenosis in CCL, on DPT, will continue Pt going home today Critical Care: Critically Ill Patient JEN HAQ MD Oct 11, 2022 09:10
[2022-10-11 09:40] VITALS: BP 99/64
--- NOTE | 2022-10-11 10:43 | Progress Note ---
SEVERINO 10/11/22 1043: Progress Note Hospital course: 66 y/o male with a history of poorly controlled DMT2, HTN, HLD, prostate cancer, and obstructive sleep apnea presented to the ED with chest pain that radiates to the back on on 10/09/22. ECG on admit date showed no ST elevations, but labs showed troponin of 0.741 and rising. Patient was started on heparin, morphine, aspirin, brilanta, and nitroglycerin. CT showed some coronary calcifications, to note, CT of the abdomen showed left colon diverticulosis which was also seen on colonoscopy the patient had on 10/04/22. Echo showed grade 1 diastolic dysfunction on left ventricle. He underwent left heart catheterization on 10/10/22, there was a failed attempt at intervention because of total occlusion of the mid LAD but there was collateral filling in the distal LAD by the RCA. Patient felt fine after the procedure and no recurrence or chest pain or any weakness. Patient was able to ambulate without any symptoms, he was discharged on 10/11/22. KATEY FRASER DO 10/11/22 2008: Supervisory-Addendum Brief Verification & Attestation Participated in pt care: history, MDM, physical Personally performed: exam, history, MDM, supervision of care Care discussed with: Medical Student Procedures: n/a Results interpretation: Verified all documentation Verification and Attestation of Medical Student E/M Service A medical student performed and documented this service in my presence. I reviewed and verified all information documented by the medical student and made modifications to such information, when appropriate. I personally performed the physical exam and medical decision making. Katey Fraser Oct 11, 2022,20:07 SE[facility]INO Oct 11, 2022 10:43 KATEY FRASER DO Oct 11, 2022 20:08
== END 2022-10-11 09:45 | disposition home or self-care (01) | DRG 281 ==
LOC: EDUNIT# 19:24 → ER 19:27 → ICU 21:45
PROVIDERS: ADMIT Internal Medicine; ATTEND Internal Medicine
PROC: 4A023N7 Measurement of Cardiac Sampling and Pressure, Left Heart, Percutaneous Approach (ICD-10-PCS; principal; 2022-10-10)
PROC: B2111ZZ Fluoroscopy of Multiple Coronary Arteries using Low Osmolar Contrast (ICD-10-PCS; 2022-10-10)
PROC: 02JY3ZZ Inspection of Great Vessel, Percutaneous Approach (ICD-10-PCS; 2022-10-10)
DX: I21.4 Non-ST elevation (NSTEMI) myocardial infarction (principal); E87.20 Acidosis, unspecified; I25.10 Atherosclerotic heart disease of native coronary artery without angina pectoris; E11.65 Type 2 diabetes mellitus with hyperglycemia; I10 Essential (primary) hypertension; E78.00 Pure hypercholesterolemia, unspecified; G47.33 Obstructive sleep apnea (adult) (pediatric); C61 Malignant neoplasm of prostate; K58.1 Irritable bowel syndrome with constipation; G47.30 Sleep apnea, unspecified; F41.9 Anxiety disorder, unspecified; F32.A Depression, unspecified; E66.9 Obesity, unspecified; Z79.4 Long term (current) use of insulin; Z68.34 Body mass index [BMI] 34.0-34.9, adult; Z79.82 Long term (current) use of aspirin; Z79.899 Other long term (current) drug therapy
CPT/HCPCS: 36415; 71045; 71275; 74175; 80053; 80061; 82150; 82550; 82553; 82947; 83036; 83605; 83690; 83735; 83874; 83880; 84100; 84484; 85025; 85347; 85379; 85610; 85730; 87081; 93005; 93041; 93306; 93458

== ENCOUNTER 2022-10-28 20:42 | Emergency (ER) | payer MEDICARE, OTHER ==
[~2022-10-28] VITALS: Ht 175 cm; Wt 104.3 kg
[~2022-10-28 20:42] MED LIST changes: +ASCO100024 PO; +ASPI-1238 PO; +DICY-11 PO; -DICY10CA12 PO; +EMPA10TA PO; +MAGN400T39 PO; +TICA90TA PO; +TRZ50T PO; +ZINC50TA51 PO
--- NOTE | 2022-10-28 20:57 | ED Chest Pain ---
General Chief Complaint: Chest Pain Stated Complaint: CHEST PAINS Nursing Triage Note: PATIENT AMBULATORY TO ROOM, STATES WAS LAYING DOWN WHEN CHEST PAIN STARTED. STATES SHARP CHEST PAIN, INDEGESTION MAYBE. STATES TOOK PEPCID RN TRANSFER. Source: patient Exam Limitations: no limitations History of Present Illness Date Seen by Provider: Oct 28, 2022 Time Seen by Provider: 20:45 Initial Comments 66-year-old male presents emergency room today for chest pain. He had a heart cath on 10/07 and was found to have a chronic occlusion of the LAD with failed percutaneous intervention. He was ultimately referred to [facility] for further evaluation and treatment. He was relatively pain-free till about 6:00 this evening developed anterior pressure in his chest with a sharp component as well. The pressure is similar to the pain he was having prior to his heart cath the sharp component is new. Nausea vomiting diaphoresis. No shortness of breath. No fevers or chills. All other systems reviewed and negative except documented per HPI. Voice recognition software was used to help create this chart Allergies and Home Medications Allergies Coded Allergies: No Known Drug Allergies (Verified , 09/22/22) Patient Home Medication List Home Medication List Reviewed: Yes Amlodipine Besylate (Amlodipine Besylate) 5 Mg Tablet, 5 MG PO HS, (Reported) Entered as Reported by: HERB BLANCO on 07/31/22 1840 Ascorbic Acid (Vitamin C) 1,000 Mg Tablet, 1,000 MG PO HS, (Reported) Entered as Reported by: TRUMAN PICHARDO on 10/10/22 1222 Aspirin (Aspirin EC) 81 Mg Tablet.dr, 81 MG PO DAILY Prescribed by: MARY CHÁVEZ on 10/11/22 0812 Buspirone HCl (Buspirone HCl) 10 Mg Tablet, 20 MG PO HS, (Reported) Entered as Reported by: LUTHER RIVERA on 02/18/20 1446 Cetirizine HCl (Cetirizine HCl) 10 Mg Tablet, 10 MG PO HS, (Reported) Entered as Reported by: TRUMAN PICHARDO on 02/24/20 1042 Cholecalciferol (Vitamin D3) (Vitamin D3) 125 Mcg (5000 Unit) Tab.rapdis, 125 MCG PO HS, (Reported) Entered as Reported by: Deborah Ram on 09/22/22 1041 Empagliflozin (Jardiance) 10 Mg Tablet, 10 MG PO DAILY Prescribed by: MARY CHÁVEZ on 10/11/22 0812 Insulin Glargine,Hum.rec.anlog (Lantus Solostar) 100 Unit/Ml (3 Ml) Insuln.pen, 120 UNITS SC HS, (Reported) Entered as Reported by: HERB BLANCO on 07/31/22 1840 Insulin Regular, Human (Humulin R U-500 Kwikpen) 500/Ml (3) Insuln.pen, 10 UNITS SC 1200,1800 W/MEALS, (Reported) Entered as Reported by: HERB BLANCO on 07/31/22 1840 Lisinopril (Lisinopril) 40 Mg Tablet, 40 MG PO HS, (Reported) Entered as Reported by: LUTHER RIVERA on 11/15/17 1257 Magnesium Oxide (Magnesium) 400 Mg Magnesium Tablet, 400 MG PO HS, (Reported) Entered as Reported by: TRUMAN PICHARDO on 10/10/22 1222 Sertraline HCl (Sertraline HCl) 100 Mg Tablet, 100 MG PO HS, (Reported) Entered as Reported by: LUTHER RIVERA on 02/18/20 1446 Sertraline HCl (Sertraline HCl) 50 Mg Tablet, 50 MG PO HS, (Reported) Entered as Reported by: TRUMAN PICHARDO on 02/24/20 1042 Ticagrelor (Brilinta) 90 Mg Tablet, 90 MG PO BID Prescribed by: MARY CHÁVEZ on 10/11/22 0812 Trazodone HCl (Trazodone HCl) 50 Mg Tablet, 50 MG PO HS, (Reported) Entered as Reported by: TRUMAN PICHARDO on 10/10/22 1222 Zinc Amino Acid Chelate (Zinc) 50 Mg Tablet, 50 MG PO HS, (Reported) Entered as Reported by: TRUMAN PICHARDO on 10/10/22 1222 Review of Systems Review of Systems Constitutional: see HPI Past Qvfafsn-Lbfvwg-Pvapsb Hx Patient Social History Tobacco Use?: No Use of E-Cig and/or Vaping dev: No Immunizations Up To Date First/Initial COVID19 Vaccinat: UNSURE OF DATE ' Second COVID19 Vaccination Daniele: UNSURE OF DATE ' Third COVID19 Vaccination Date: UNSURE OF DATE ' Seasonal Allergies Seasonal Allergies: Yes (MILD) Past Medical History Surgery/Hospitalization HX: constipation, IBS, HTN, DM II, ANXIETY, CHRONIC BACK PAIN, HIGH CHOLESTEROL, HEART CATH NOV 05. CLEAN Surgeries: Yes ("CYST" REMOVED FROM ABDOMEN;RADIATION SEED IMPLANTS IN PROSTATE 2020) Adenoidectomy, Tonsillectomy Respiratory: Yes Sleep Apnea Currently Using CPAP: Yes Currently Using BIPAP: No Cardiac: Yes High Cholesterol, Hypertension Neurological: No Reproductive Disorders: No Sexually Transmitted Disease: No HIV/AIDS: No Genitourinary: Yes (prostate cancer) Prostate Problems Gastrointestinal: Yes Irritable Bowel Musculoskeletal: No Endocrine: Yes Diabetes, Insulin dep HEENT: Yes (S/P TONSILLECTOMY) Tonsilitis Loss of Vision: Denies Hearing Impairment: Denies Cancer: Yes Prostate Did You Recieve Any Treatments: Yes What Type of Treatment Did You: Radiation Psychosocial: Yes Anxiety, Depression Integumentary: Yes ("CYST" ON ABDOMEN REMOVED. ) Blood Disorders: No Adverse Reaction/Blood Tranf: No Family Medical History Heart Disease Physical Exam Vital Signs Vital Signs - First Documented 10/28/22 10/28/22 20:46 21:01 Pulse 72 Resp 20 B/P (MAP) 133/73 (93) Pulse Ox 96 O2 Delivery Room Air O2 Flow Rate 2.00 Capillary Refill : Less Than 3 Seconds Height, Weight, BMI Height: 5'9.00" Weight: 240lbs. 0.0oz. 108.767446vq; 34.00 BMI Method:Stated General Appearance: No Apparent Distress HEENT: Normal ENT Inspection, Pharynx Normal Neck: Normal Inspection, Non Tender, Supple Respiratory: Chest Non Tender, Lungs Clear, Normal Breath Sounds Cardiovascular: Regular Rate, Rhythm, No Murmur Gastrointestinal: Normal Bowel Sounds, No Organomegaly, Non Tender, Soft Extremity: Normal Capillary Refill, Normal Inspection, No Calf Tenderness, No Pedal Edema Neurologic/Psychiatric: Alert, Oriented x3 Skin: Normal Color, Warm/Dry Progress/Results/Core Measures Results/Orders Lab Results Laboratory Tests Test 10/28/22 21:16 10/28/22 22:47 Range/Units White Blood Count 7.6 4.3-11.0 10^3/uL Red Blood Count 4.15 L 4.30-5.52 10^6/uL Hemoglobin 13.5 13.3-17.7 g/dL Hematocrit 39 L 40-54 % Mean Corpuscular Volume 94 80-99 fL Mean Corpuscular Hemoglobin 33 25-34 pg Mean Corpuscular Hemoglobin Concent 35 32-36 g/dL Red Cell Distribution Width 12.2 10.0-14.5 % Platelet Count 251 130-400 10^3/uL Mean Platelet Volume 10.1 9.0-12.2 fL Immature Granulocyte % (Auto) 1 % Neutrophils (%) (Auto) 79 H 42-75 % Lymphocytes (%) (Auto) 14 12-44 % Monocytes (%) (Auto) 6 0-12 % Eosinophils (%) (Auto) 1 0-10 % Basophils (%) (Auto) 0 0-10 % Neutrophils # (Auto) 6.0 1.8-7.8 10^3/uL Lymphocytes # (Auto) 1.0 1.0-4.0 10^3/uL Monocytes # (Auto) 0.4 0.0-1.0 10^3/uL Eosinophils # (Auto) 0.1 0.0-0.3 10^3/uL Basophils # (Auto) 0.0 0.0-0.1 10^3/uL Immature Granulocyte # (Auto) 0.1 0.0-0.1 10^3/uL Sodium Level 137 135-145 MMOL/L Potassium Level 4.4 3.6-5.0 MMOL/L Chloride Level 107 98-107 MMOL/L Carbon Dioxide Level 18 L 21-32 MMOL/L Anion Gap 12 5-14 MMOL/L Blood Urea Nitrogen 27 H 7-18 MG/DL Creatinine 1.15 0.60-1.30 MG/DL Estimat Glomerular Filtration Rate 71 BUN/Creatinine Ratio 23 Glucose Level 266 H 70-105 MG/DL Calcium Level 8.8 8.5-10.1 MG/DL Corrected Calcium 8.8 8.5-10.1 MG/DL Magnesium Level 1.9 1.6-2.4 MG/DL Total Bilirubin 0.7 0.1-1.0 MG/DL Aspartate Amino Transf (AST/SGOT) 18 5-34 U/L Alanine Aminotransferase (ALT/SGPT) 27 0-55 U/L Alkaline Phosphatase 131 40-136 U/L Troponin I < 0.028 < 0.028 <0.028 NG/ML Total Protein 6.5 6.4-8.2 GM/DL Albumin 4.0 3.2-4.5 GM/DL My Orders Orders - NATALIE HECTOR DO Ekg Tracing (10/28/22 20:46) Cbc With Automated Diff (10/28/22 20:54) Magnesium (10/28/22 20:54) Chest 1 View, Ap/Pa Only (10/28/22 20:54) Comprehensive Metabolic Panel (10/28/22 20:54) O2 (10/28/22 20:54) Monitor-Rhythm Ecg Trace Only (10/28/22 20:54) Ed Iv/Invasive Line Start (10/28/22 20:54) Troponin I Roosevelt (10/28/22 20:54) Nitroglycerin 0.4 Mg Btl 25's (Nitroglyc (10/28/22 21:00) Aspirin Chewable Tablet (Aspirin Chewabl (10/28/22 21:00) Fentanyl Injection (Fentanyl Injection (10/28/22 22:00) Troponin I Roosevelt (10/28/22 22:41) Medications Given in ED Current Medications Medications Dose Ordered Sig/Farhana Route Start Time Stop Time Status Last Admin Dose Admin Aspirin 324 mg ONCE ONCE PO 10/28/22 21:00 10/28/22 21:01 DC 10/28/22 20:58 324 MG Nitroglycerin 0.4 mg UD PRN SL 10/28/22 21:00 10/28/22 21:13 0.4 MG Vital Signs/I&O 10/28/22 10/28/22 20:46 21:01 Pulse 72 Resp 20 B/P (MAP) 133/73 (93) Pulse Ox 96 95 O2 Delivery Room Air Nasal Cannula O2 Flow Rate 2.00 Blood Pressure Mean: 93 Progress Progress Note : Progress Note Cardiac Cath Report Physician (s)/Popcorn Candy Maker (s) Physician MARY CHÁVEZ MD Pre-Procedure Diagnosis Pre-Procedure Diagnosis: NSTMI Post-Procedure Note Procedure Start Date: Oct 10, 2022 Name of Procedure: Left heart catheterization Attempt for intervention on the LAD Findings/Procedure Note PROCEDURE NOTE: 66-year-old gentleman admitted with non-ST elevation myocardial infarction, cardiac catheterization was advised. After explaining the procedure to the patient, all pros and cons were explained, all questions were answered. The patient signed the consent and then he was placed in the cardiac catheterization laboratory. Groin was prepped in SL fashion local anesthesia was used. Sheath placed in the right radial artery, Hindman catheter was advanced to the left ventricular cavity, pressure was measured, pullback LV to aorta was done, engage the right and left coronary system and angiogram was done. Patient received a total of 6000 units of heparin, I was unable to engage the left main with EBU guide, I used Bushra left 3.5 guide. Attempted to cross the the chronic total occlusion of the LAD with BMW wire failed. I was able to cross it with a whisper extra-support wire. I attempted to advance 2.0 x 20 mm balloon over the wire, after multiple attempt I was unable to advance it I decided to use a ryann wire. I used a run-through extra floppy wire without success in crossing the lesion again. At that point due to the length of the lesion in the LAD and the collateral filling the distal LAD I decided to abort. At the end of the procedure the sheath was removed. Vascular band was used FINDINGS: Hemodynamics LV 108/20, end-diastolic pressure of 20 Aorta 105/70 mean of 81 ANATOMY: Left Main is free of obstructive disease Left Anterior Descending has diffuse ectasia, 40 to 50% ostial lesion, chronic total occlusion at the mid LAD reconstructed by collateral, failed attempt to intervention on that LAD. 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 Failed attempt for intervention Diffuse coronary ectasia in the left coronary system, nonobstructive disease Dominant right coronary artery giving collaterals to the left Elevated left ventricular end-diastolic pressure DISCUSSION AND RECOMMENDATION: Patient was started on aspirin and Plavix, we will continue maximizing medical therapy and I will arrange for tertiary center evaluation Anesthesia Type: Conscious Sedation Estimated blood loss (mL): 20 ml Contrast Amount: 78 ml Total Radiation Dose: 895 mGy Post-Procedure Diagnosis Post-operative diagnosis: Non-ST elevation myocardial infarction Coronary artery disease Hypertension Hyperlipidemia EKG : Comment Sinus rhythm with a rate of 68 bpm. Normal intervals. Left axis deviation. Right bundle branch block. No ST or T wave abnormalities. No ectopy. No STEMI. Departure Communication (Admissions) Patient is hemodynamically stable. As he progressed through his emergency department stay his chest pain gradually resolved on its own. He did not really get much relief with the 2 provided nitroglycerin he declined the fentanyl as his pain was gradually improving. I spoke with Dr. Marte here her barge hand on-call, he recommends transfer to [facility] or [facility] in [place]. I discussed this with the patient and called [facility]. They are at capacity and cannot take transfers. Discussed possible transfer to [facility] and the fact that we will have any ground transport available that this would be in a helicopter. He does not want to go in the helicopter and opts to leave AGAINST MEDICAL ADVICE and go directly to [facility] emergency department because he wants to see the barge hand recommended by Dr. Chávez. I advised the uses within his rights to do so and that if you should change his mind he can return to our emergency department for further care. He states understanding. He signed out AGAINST MEDICAL ADVICE. He has normal mental capacity and is able to make his own medical decisions. Impression Primary Impression: Chest pain Qualified Codes: R07.9 - Chest pain, unspecified Disposition: 07 AGAINST MEDICAL ADVICE Condition: Against Medical Advice Departure-Patient Inst. Referrals: KODY SMITH DO (PCP/Family) Primary Care Physician Patient Instructions: Chest Pain (DC) Add. Discharge Instructions: As discussed you have opted to leave our emergency department and go to [facility]. Please go directly to the emergency department. We are happy to see you in our emergency department once again should you change your mind. All discharge instructions reviewed with patient and/or family. Voiced understanding. NATALIE HECTOR DO Oct 28, 2022 20:57
[2022-10-28] MEDS: NITROGLYCERIN 0.4 MG SL TABLETS BTL 25'S SL PRN ×2 (20:58→21:13)
[2022-10-28] MEDS ORDERED: ASPIRIN 81 MG CHEWABLE TABLET PO ONE (21:00)
[2022-10-28 21:23] LABS: BASOPHILS % (AUTO) 0 % (0-10); EOSINOPHILS # (AUTO) 0.1 10^3/uL (0.0-0.3); EOSINOPHILS % (AUTO) 1 % (0-10); HEMATOCRIT 39 % (40-54); HEMOGLOBIN 13.5 g/dL (13.3-17.7); LYMPHOCYTES % (AUTO) 14 % (12-44); MEAN CORPUSCULAR HEMOGLOBIN 33 pg (25-34); MEAN CORPUSCULAR HGB CONC 35 g/dL (32-36); MEAN CORPUSCULAR VOLUME 94 fL (80-99); MEAN PLATELET VOLUME 10.1 fL (9.0-12.2); MONOCYTES # (AUTO) 0.4 10^3/uL (0.0-1.0); MONOCYTES % (AUTO) 6 % (0-12); NEUTROPHILS % (AUTO) 79 % (42-75); PLATELET COUNT 251 10^3/uL (130-400); WHITE BLOOD COUNT 7.6 10^3/uL (4.3-11.0)
--- NOTE | 2022-10-28 21:35 | Diagnostic Imaging Report ---
EXAMINATION: Chest 1 view HISTORY: Chest pain. COMPARISON: 10/09/2022. FINDINGS: Lung volumes are low. No focal consolidations. No pleural effusion or pneumothorax. Stable cardiac silhouette. IMPRESSION: 1. Low lung volumes, likely due to poor inspiratory effort. 2. No focal consolidation or large pleural effusion. Dictated by: Dictated on workstation # [id number]
[2022-10-28 21:54] LABS: ALANINE AMINOTRANSFERASE 27 U/L (0-55); ALKALINE PHOSPHATASE 131 U/L (40-136); BILIRUBIN,TOTAL 0.7 MG/DL (0.1-1.0); BUN/CREATININE RATIO 23; CALCIUM 8.8 MG/DL (8.5-10.1); CARBON DIOXIDE 18 MMOL/L (21-32); CHLORIDE 107 MMOL/L (98-107); CREATININE SERUM 1.15 MG/DL (0.60-1.30); GFR ESTIMATED 71; GLUCOSE 266 MG/DL (70-105); POTASSIUM 4.4 MMOL/L (3.6-5.0); SODIUM 137 MMOL/L (135-145); TOTAL PROTEIN 6.5 GM/DL (6.4-8.2)
[2022-10-28] MEDS ORDERED: fentaNYL INJECTION 100 MCG/2 ML VIAL IVP ONE (22:00)
[2022-10-28 22:11] LABS: MAGNESIUM 1.9 MG/DL (1.6-2.4)
[2022-10-28 23:58] VITALS: BP 118/63
== END 2022-10-28 23:59 | disposition left against medical advice (07) ==
LOC: EDUNIT# 20:42 → ER 20:45
DX: R07.9 Chest pain, unspecified (principal); I45.10 Unspecified right bundle-branch block; G47.30 Sleep apnea, unspecified; E11.9 Type 2 diabetes mellitus without complications; Z79.4 Long term (current) use of insulin; Z99.89 Dependence on other enabling machines and devices
CPT/HCPCS: 36415; 71045; 80053; 83735; 84484; 85025; 93005; 93041

== ENCOUNTER 2022-12-12 10:17 | Outpatient (RCR) | payer MEDICARE, OTHER | END 2022-12-13 | disposition home or self-care (01) | LOC: CR 10:17 | PROVIDERS: ATTEND Internal Medicine Critical Care Medicine | DX: Z29.89 Encounter for other specified prophylactic measures (principal) | CPT/HCPCS: 93798 ==

== ENCOUNTER 2023-01-11 10:13 | Outpatient (RCR) | payer MEDICARE, OTHER | END 2023-01-12 | disposition home or self-care (01) | LOC: CR 10:13 | PROVIDERS: ATTEND Internal Medicine Critical Care Medicine | DX: Z29.89 Encounter for other specified prophylactic measures (principal); Z95.5 Presence of coronary angioplasty implant and graft | CPT/HCPCS: 93798 ==